=== PATIENT | male | born 1965 | race Caucasian/White ===

== ENCOUNTER 2019-12-17 09:51 | Inpatient (IN) ==
[2019-12-17] MEDS ORDERED: 0.9 % SODIUM CHLORIDE 1,000 ML IV ONE ×2 (10:20→13:45)
[2019-12-17] MEDS ORDERED: LORazepam 2 MG/ML VIAL IV ONE ×3 (10:22→15:33)
[2019-12-17] MEDS ORDERED: ONDANSETRON 4 MG/2 ML VIAL IV ONE (10:35)
--- NOTE | 2019-12-17 10:35 | Emergency Department Note ---
Seizure HPI General Chief Complaint: Seizure Stated Complaint: seizure Time Seen by Provider: 12/17/19 10:05 Source: patient Mode of arrival: ambulatory Limitations: no limitations History of Present Illness HPI Narrative: 54-year-old male patient brought to the emergency department via law enforcement after suffering a seizure in the retirement. Senior Care staff mention the seizure lasted for approximately 1 minute and 30 seconds. Afterwards, patient was postictal for several more minutes. Upon arrival patient is alert and orientated to his person and place. He is unsure what day of the week or month it is. Patient admits to a longstanding history of seizure disorder. He mentions being on some form of antiseizure medicine in the past but is unsure which one. Patient also admits to a longstanding history of excessive alcohol consumption. He mentions drinking approximately 15 "tall beers" nightly. He is unsure when his last alcohol intake was but thinks it was around the time he was incarcerated which was on 12/12. Patient admits to being homeless and is "living out of my car for the last several months". Patient has no considerable complaints and does mention feeling "pretty good". ROS: Denies systemic illness. Admits to sweats and chills. Denies headaches, tinnitus, or vision changes. Denies runny nose, sinus congestion, or cough. Admits to mild shortness of breath. Denies retrosternal chest pain or palpitations. Denies abdominal pain, nausea, vomiting, or diarrhea. Denies dysuria, hematuria, urinary frequency, or urinary urgency. Denies generalized or focal weakness. Related Data Home Medications Medication Instructions Recorded Confirmed No Known Home Meds 12/13/19 12/13/19 Allergies Allergy/AdvReac Type Severity Reaction Status Date / Time No Known Drug Allergies Allergy Verified 12/13/19 23:04 Review of Systems All systems ED: reviewed and negative except as stated. [facility] Medical/Surgical/Family History All Active Problems (Updated 12/17/19 @ 15:48 by Roddy Jara PA-C) Contusion, lips (Acute) Abrasion of lip, initial encounter (Acute) Medical clearance for incarceration (Acute) Altered mental status (Acute) Elevated LFTs (Acute) Seizures (Chronic) Alcoholism, chronic (Chronic) Medical History Alcoholism, chronic (Chronic) Seizures (Chronic) Social History Smoking Status: Never smoker Exam General Limitations: no limitations General appearance: other (Well-developed, well-nourished, somewhat anxious appearing 54-year-old male patient laying semirecumbent on the emergency room gurney in no acute respiratory distress.) Head Head: atraumatic and normocephalic Eye Eye: Present normal appearance, PERRL and EOMI; Absent scleral icterus and conjunctival injection ENT ENT: Present normal oropharynx and mucous membranes moist Neck Neck: Present trachea midline; Absent lymphadenopathy Chest Chest: Present symmetric chest wall rise Respiratory Respiratory: Present normal lung sounds bilaterally; Absent respiratory distress, wheezes, stridor, accessory muscle use and prolonged expiratory phase Cardiovascular Cardiovascular: Present regular rate and normal rhythm; Absent systolic murmur and diastolic murmur Adbominal Abdominal: Present soft; Absent distention, tenderness, guarding, rebound, rigidity, organomegaly and mass Extremities Extremities: Present normal inspection, full ROM and normal capillary refill; Absent tenderness Back Back: Absent CVA tenderness (R), CVA tenderness (L) and spinous process tenderness Neurological Neurological: Present alert, oriented X3, CN II-XII intact and reflexes normal; Absent motor sensory deficit Psychiatric Psychiatric: Present normal affect and anxious Skin Skin: Present warm, dry and normal color Course Course Course Narrative: Patient has known history of seizure disorder and had a CT scan of his head performed back in August that showed some white matter atrophy but no other findings. At this time patient is alert and orientated without focal neurologic findings. I do not think additional neuro imaging is warranted. We are going to order some screening laboratory studies to review. Patient was given 1000 mL normal saline as a bolus. Patient became somewhat nauseated and was also given Zofran 4 mg IVP. Review of the literature indicates that there are mixed results using Keppra for seizures related to alcohol withdrawal. With this in mind, patient was given Ativan 0.5 mg IVP. A review of his laboratory studies show the following: CBC WBC 6.9, RBC 4.29, hemoglobin 9.3, hematocrit 32.2, MCV 75.1, platelet count 110. CMP chloride 95, CO2 12, anion gap 29, glucose 179, total bilirubin 1.1, AST 80, ALT 47. Magnesium 2.0. After reviewing all the data I discussed these findings with the patient. He is no longer in the custody of law enforcement. However, there is questions about discharge and where he is going to get follow-up. He does have's developing anemia. There is also question of further alcohol consumption. Patient is currently homeless. ironworker was contacted for evaluation and guidance. Patient was transferred to a different examination room. Nursing staff tried to get the patient up. At that time he became very unsteady, wobbly, and tremulous. He continues to have equal health and nutrition specialist strength equal push pull with his feet. However, he is very unsteady and has a considerable resting tremor. Patient was given repeat 1000 mL normal saline. He was also given repeat Ativan 0.5 mg IVP. ironworker met with the patient extensively throughout his stay. At this time there was recommendation to have a CIWA scale performed. Patient scored high (17) on his CIWA making the diagnosis of acute alcohol withdrawal syndrome very likely. With this in mind I reached out to the hospitalist (Dr. Longo) for possible admission. At this time the hospitalist recommended the patient be started on IV infusion of normal saline 150 mL/hour. He also recommended repeat noncontrast head CT scan due to the patient's worsening condition. He did consent to admit the patient to the hospital for ongoing care. The IV infusion and CT scan were ordered as requested. At this time patient is going to be admitted as mentioned. All further treatment decisions, modalities, and ultimate patient disposition will be carried out by Dr. Longo. Vital Signs Vital signs: Vital Signs Temperature 97.7 F 12/17/19 09:51 Pulse Rate 92 H 12/17/19 09:51 Respiratory Rate 16 12/17/19 09:51 Blood Pressure 142/92 12/17/19 09:51 Pulse Oximetry (%) 95 12/17/19 09:51 Temperature 97.7 F 12/17/19 16:11 Pulse Rate 103 H 12/17/19 16:11 Respiratory Rate 16 12/17/19 16:11 Blood Pressure 163/87 12/17/19 16:11 Pulse Oximetry (%) 97 12/17/19 16:11 [facility] Lab Data Lab results reviewed: Yes I reviewed the patient's lab results. Result diagrams: 12/17/19 10:30 06/25/20 10:29 Labs: Lab Results 12/17/19 12/17/19 Range/Units 10:29 10:30 WBC 6.9 (4.50-11.00) K/mcL RBC 4.29 L (4.63-6.08) M/mcL Hgb 9.3 L (13.7-17.5) g/dL Hct 32.2 L (40.1-51.0) % MCV 75.1 L (80.0-100.0) fL MCH 21.7 L (26.0-34.0) pg MCHC 28.9 L (31.0-36.0) g/dL RDW 20.2 H (11.5-14.5) % Plt Count 110 L (140-440) K/mcL MPV 10.1 (7.4-10.4) fL Gran % 80.0 H (38.0-78.0) % Lymph % (Auto) 8.9 L (15.5-49.0) % Major % (Auto) 10.4 (1.0-12.0) % Eos % (Auto) 0.1 (0.0-7.0) % Baso % (Auto) 0.6 (0.0-2.0) % Gran # 5.55 (1.80-8.00) K/mcL Lymph # (Auto) 0.62 L (1.50-4.80) K/mcL Major # (Auto) 0.72 (0.10-0.90) K/mcL Eos # (Auto) 0.01 (0.00-0.70) K/mcL Baso # (Auto) 0.04 (0.00-0.30) K/mcL Sodium 136 (133-145) mmol/L Potassium 3.8 (3.3-5.1) mmol/L Chloride 95 L (96-108) mmol/L Carbon Dioxide 12 L (22-30) mmol/L Anion Gap 29.0 H (8-16) BUN 6 (6-20) mg/dl Creatinine 0.9 (0.7-1.2) mg/dl GFR Calculation 96 Glucose 179 H (70-105) mg/dL Calcium 9.1 (8.6-10.4) mg/dl Magnesium 2.0 (1.6-2.5) mg/dL Total Bilirubin 1.1 H (0.0-1.0) mg/dL AST 80 H (0-37) U/l ALT 47 H (0-40) U/l Alkaline Phosphatase 76 (39-117) U/L Total Protein 7.1 (5.9-8.4) gm/dL Albumin 4.3 (3.2-5.2) gm/dL Globulin 2.8 (2.2-3.7) gm/dL Albumin/Globulin Ratio 1.5 (1.0-2.3) Discharge Plan Patient/Caregiver Discharge Instructions Pt seen by DROP HAMMER MECHANIC/PA only: Yes Clinical Impression: Seizures, Alcoholism, chronic, Elevated LFTs Altered mental status Qualifiers: Altered mental status type: unspecified Qualified Code(s): R41.82 - Altered mental status, unspecified Patient Disposition: Xfer As Inpt ([facility]) Discharge Date/Time: 12/17/19 16:13
[2019-12-17 11:09] LABS: Basophils # (Auto) 0.04 K/mcL (0.00-0.30); Basophils % (Auto) 0.6 % (0.0-2.0); Eosinophils # (Auto) 0.01 K/mcL (0.00-0.70); Eosinophils % (Auto) 0.1 % (0.0-7.0); Hematocrit 32.2 % (40.1-51.0); Hemoglobin 9.3 g/dL (13.7-17.5); Lymphocytes # (Auto) 0.62 K/mcL (1.50-4.80); Lymphocytes % (Auto) 8.9 % (15.5-49.0); Mean Cell Volume 75.1 fL (80.0-100.0); Mean Corpuscular HGB Conc 28.9 g/dL (31.0-36.0); Mean Platelet Volume 10.1 fL (7.4-10.4); Monocytes # (Auto) 0.72 K/mcL (0.10-0.90); Monocytes % (Auto) 10.4 % (1.0-12.0); Platelet Count 110 K/mcL (140-440); RBC 4.29 M/mcL (4.63-6.08); Red Cell Distribution Width 20.2 % (11.5-14.5); WBC 6.9 K/mcL (4.50-11.00)
[2019-12-17 11:31] LABS: ALT/SGPT 47 U/l (0-40); AST/SGOT 80 U/l (0-37); Albumin 4.3 gm/dL (3.2-5.2); Albumin/Globulin Ratio 1.5 (1.0-2.3); Alkaline Phosphatase 76 U/L (39-117); Bilirubin,Total 1.1 mg/dL (0.0-1.0); Blood Urea Nitrogen 6 mg/dl (6-20); Calcium 9.1 mg/dl (8.6-10.4); Carbon Dioxide 12 mmol/L (22-30); Globulin 2.8 gm/dL (2.2-3.7); Glomerular Filtration Rate 96; Glucose 179 mg/dL (70-105)
[2019-12-17 11:33] LABS: Chloride 95 mmol/L (96-108)
[2019-12-17] MEDS ORDERED: DEXTROSE 50% 50 ML VIAL IV PRN (15:37)
[2019-12-17] MEDS ORDERED: ALBUTEROL SULFATE 2.5 MG/3 ML NEBULIZER NEB PRN (15:37)
[2019-12-17] MEDS ORDERED: ONDANSETRON 4 MG/2 ML VIAL IV PRN (15:37)
[2019-12-17] MEDS ORDERED: ACETAMINOPHEN 325 MG TABLET PO PRN (15:37)
[2019-12-17] MEDS ORDERED: DEXTROSE 31 GM ORAL.SUSP PO PRN (15:37)
[2019-12-17] MEDS ORDERED: traZODone HCL 50 MG TABLET PO PRN (15:37)
[2019-12-17] MEDS ORDERED: 0.9 % SODIUM CHLORIDE 1,000 ML IV SCH (15:45)
--- NOTE | 2019-12-17 16:00 | Cat Scan Report ---
CLINICAL INFORMATION: Confusion possible seizures COMPARISON: 02/11/2020 TECHNIQUE: 2.5 mm helical slices were obtained in the skull base to vertex. Following reconstruction, axial reformatted images were reviewed at bone and parenchymal windows. The exam was performed using radiation dose optimization techniques including, but not limited to, automated exposure control, adjustment of the mA and/or kV according to patient size and use of iterative reconstruction technique. FINDINGS: The ventricles, sulci, fissures, and cisterns are symmetrically enlarged compatible with mild atrophy - more than expected for age.. No extra-axial fluid collections are identified. There is a 3.4 cm arachnoid cyst in the left posterior fossa minimally compressing the left lateral cerebellar hemisphere. The cerebrum, brainstem and cerebellum are unremarkable. There is no evidence of hemorrhage, mass effect, or edema. Bone windows show no osseous abnormality. IMPRESSION: Mild atrophy - more the expected for age. 3.4 cm arachnoid cyst in the left posterior fossa Interpreted and Authenticated by: Yobani Moreno 12/17/19
[2019-12-17] MEDS: levETIRAcetam 500 MG in 0.9 % SODIUM CHLORIDE 100 ML IV SCH (16:57)
[2019-12-17] MEDS: INSULIN LISPRO 1 UNIT/0.01 ML UNIT SQ SCH ×2 (17:03→20:31)
--- NOTE | 2019-12-17 18:06 | Internal Med History&Physical ---
HPI History of Present Illness Patient information: Note initiated : 12/17/19 at 6:00 pm Service Date, if different from initiated Date: [] Patient: Rios Navarro 54 y/o M admitted on 12/17/19 for seizure. Chief Complaint: [] History of present illness: Mr. Navarro is a 54 year old M 54-year-old gentleman with a history of severe alcohol dependence and alcohol withdrawal seizures and delirium was [facility] the ED [facility] following 2 epi sodes of seizures. Patient has been drinking about 15 tall alcohol bottles and beers for the last few months since May and end up in penitentiary for trespassing he has been incarcerated for the last 4 days. He has a bail hearing and noticed 2 episodes of seizure. Patient being homeless and living out of his car for last few months. Patient denied any other health issues other than unsteady gait for the last few months and numbness of the bilateral lower extremities. Constitutional Constitutional: Present weakness; Absent daytime sleepiness, fever(s), increased appetite and night sweats EENT Eyes: Absent discharge, floaters, loss of peripheral vision and photophobia Nose, mouth and throat: Present as per HPI; Absent change in voice, dizziness and epistaxis Cardiovascular Cardiovascular: Absent chest pain at rest, diaphoresis, edema and leg edema Respiratory Respiratory: Present snoring; Absent hemoptysis, chest congestion and pain with cough Gastrointestinal Gastrointestinal: Absent change in bowel habits, constipation, dyspepsia and excessive flatus Musculoskeletal Musculoskeletal: Present abnormal gait, back pain, joint swelling, muscle cramps, myalgias, numbness and tingling Neurological Neurological: Present abnormal gait, abnormal movements, disequilibrium, numbness, paresthesias, sensory deficit, tingling and tremor(s); Absent abnormal hearing, confusion, convulsions, focal weakness, headache(s), loss of vision, memory loss, radicular pain, syncope and vertigo Psychiatric Psychiatric: Present abnormal sleep pattern, anxiety and irritability; Absent auditory hallucinations, change in appetite, change in libido, cravings, depression, hallucinations, homicidal ideation, memory loss, paranoia and suicidal ideation Endocrine Endocrine: Present fatigue; Absent cold intolerance, flushing, increase in ring/shoe/hat size, palpitations and polyphagia Hematologic/Lymphatic Hematologic/Lymphatic: Absent easy bleeding, easy bruising and lymphadenopathy PFSH [facility] Medical History Alcoholism, chronic (Chronic) Seizures (Chronic) Social History smoking status: Never smoker MEDS/ALLERGIES Home Medications and Allergies Home Medications Medication Instructions Recorded Confirmed Type No Known Home Meds 12/13/19 12/17/19 History Allergies Allergy/AdvReac Type Severity Reaction Status Date / Time No Known Drug Allergies Allergy Verified 12/13/19 23:04 EXAM Constitutional Vitals: Temp Pulse Resp BP Pulse Ox 98.9 F 89 18 132/82 96 12/17/19 17:33 12/17/19 17:33 12/17/19 17:33 12/17/19 17:33 12/17/19 17:33 General appearance: disheveled and moderate distress Head Head exam: Present atraumatic and normal inspection Eye Eye exam: Present normal appearance; Absent periorbital swelling, periorbital tenderness and scleral icterus Pupils: Present normal accommodation ENT ENT exam: Present mucous membranes dry Neck Neck exam: Present full ROM and normal inspection; Absent lymphadenopathy and tenderness Respiratory Respiratory exam: Present normal respiratory exam; Absent accessory muscle use, respiratory distress, rhonchi and wheezes Cardiovascular Cardiovascular exam: Present tachycardia; Absent JVD, rubs, +S3 and +S4 GI/Abdominal GI/Abdominal exam: Present normal bowel sounds and distended; Absent pulsatile mass and tenderness Extremities Exam Extremities exam: Present normal capillary refill; Absent calf tenderness, pedal edema and Layla's sign Back Exam Back exam: Absent CVA tenderness (L), muscle spasm and rash noted Neurological Exam Neurological exam: Present abnormal gait Additional comments: Unsteady gait, wide gait, motor strength bilaterally equal, crude sensation diminished b/l lower extremity Psychiatric Psychiatric exam: Present anxious; Absent agitated Skin Skin exam: Absent abrasion, cyanosis and erythema DATA Data Completed and Pending Labs on day of discharge: Labs from last 24 hours 12/17/19 12/17/19 12/17/19 10:30 10:29 10:22 WBC 6.9 RBC 4.29 L Hgb 9.3 L Hct 32.2 L MCV 75.1 L MCH 21.7 L MCHC 28.9 L RDW 20.2 H Plt Count 110 L MPV 10.1 Gran % 80.0 H Lymph % (Auto) 8.9 L [place] % (Auto) 10.4 Eos % (Auto) 0.1 Baso % (Auto) 0.6 Gran # 5.55 Lymph # (Auto) 0.62 L [place] # (Auto) 0.72 Eos # (Auto) 0.01 Baso # (Auto) 0.04 Sodium 136 Potassium 3.8 Chloride 95 L Carbon Dioxide 12 L Anion Gap 29.0 H BUN 6 Creatinine 0.9 GFR Calculation 96 Glucose 179 H Calcium 9.1 Magnesium 2.0 Total Bilirubin 1.1 H AST 80 H ALT 47 H Alkaline Phosphatase 76 Total Protein 7.1 Albumin 4.3 Globulin 2.8 Albumin/Globulin Ratio 1.5 TSH 5.89 H A/P Narrative A/P Narrative: Narrative: Probable alcohol withdrawal seizure and delirium tremens History of heavy alcohol intake and end up in the penitentiary for [employer] Patient had 2 episodes of seizures in penitentiary Patient was presented in the ED by the police and given 2 dose of lorazepam Started him on Keppra 500 twice daily We will start him on CIWA protocol with scheduled lorazepam and as needed 0.5 mg every 2 hour Severe metabolic acidosis Probably starvation acidosis Start him on IV fluid resuscitation We will start him on thiamine Severe alcohol dependence Patient has plans to stay away from alcohol Social service consult Unsteady gait Probable peripheral neuropathy Ordered B12 level Ordered TSH level DVT prophylaxis-subcu Lovenox CODE STATUS-DNR CPT code 76372 Time Spent With Patient Time: Total time spent is greater than 50% in coordination of care (as documented) at patient's floor/unit and/or counseling patient: QUALITY VTE Deep Vein Thrombosis/Pulmonary Embolism Present on Admission: No
[2019-12-17] MEDS: DEXTROSE 5%-NS 1,000 ML IV SCH (19:01)
[2019-12-17] MEDS: LORazepam 2 MG/ML VIAL IV SCH (19:31)
[2019-12-17] MEDS ORDERED: SODIUM CHLORIDE 0.9% IV ONE (20:00)
[2019-12-17] MEDS ORDERED: THIAMINE IV ONE (20:00)
[2019-12-17] MEDS: DOCUSATE SODIUM 100 MG CAPSULE PO SCH (20:14)
[2019-12-17] MEDS: FAMOTIDINE 20 MG TABLET PO SCH (20:14)
[2019-12-17] MEDS: 0.9 % SODIUM CHLORIDE 10 ML SYRINGE IV SCH (20:25)
[2019-12-17] MEDS ORDERED: SENNOSIDES 1 TABLET PO SCH (21:00)
[2019-12-17] MEDS ORDERED: HALOPERIDOL LACTATE 5 MG/ML VIAL IV PRN (22:34)
[2019-12-17] MEDS: LORazepam 2 MG/ML VIAL IV PRN (22:55)
[2019-12-17 23:26] LABS: Basophils # (Auto) 0.05 K/mcL (0.00-0.30); Basophils % (Auto) 0.8 % (0.0-2.0); Eosinophils # (Auto) 0.03 K/mcL (0.00-0.70); Eosinophils % (Auto) 0.5 % (0.0-7.0); Granulocytes % (Auto) 76.7 % (38.0-78.0); Hematocrit 28.3 % (40.1-51.0); Hemoglobin 8.3 g/dL (13.7-17.5); Lymphocytes # (Auto) 0.69 K/mcL (1.50-4.80); Lymphocytes % (Auto) 11.4 % (15.5-49.0); Mean Cell Volume 74.5 fL (80.0-100.0); Mean Corpuscular HGB Conc 29.3 g/dL (31.0-36.0); Monocytes # (Auto) 0.64 K/mcL (0.10-0.90); Monocytes % (Auto) 10.6 % (1.0-12.0); Platelet Count 115 K/mcL (140-440); Red Cell Distribution Width 20.7 % (11.5-14.5)
[2019-12-18] MEDS: LORazepam 2 MG/ML VIAL IV SCH ×5 (00:07→23:41)
[2019-12-18] MEDS ORDERED: HALOPERIDOL LACTATE 5 MG/ML VIAL ONE (01:52)
[2019-12-18] MEDS: LORazepam 2 MG/ML VIAL IV PRN ×3 (03:30→19:28)
[2019-12-18] MEDS: 0.9 % SODIUM CHLORIDE 10 ML SYRINGE IV SCH ×3 (04:52→20:51)
[2019-12-18] MEDS: DEXTROSE 5%-NS 1,000 ML IV SCH ×2 (05:21→14:30)
[2019-12-18 07:54] LABS: Basophils # (Auto) 0.03 K/mcL (0.00-0.30); Basophils % (Auto) 0.6 % (0.0-2.0); Eosinophils # (Auto) 0.04 K/mcL (0.00-0.70); Eosinophils % (Auto) 0.9 % (0.0-7.0); Granulocytes % (Auto) 69.2 % (38.0-78.0); Hematocrit 26.6 % (40.1-51.0); Hemoglobin 7.7 g/dL (13.7-17.5); Lymphocytes # (Auto) 0.86 K/mcL (1.50-4.80); Lymphocytes % (Auto) 18.5 % (15.5-49.0); Mean Cell Volume 75.6 fL (80.0-100.0); Mean Corpuscular HGB Conc 28.9 g/dL (31.0-36.0); Mean Platelet Volume 10.5 fL (7.4-10.4); Monocytes % (Auto) 10.8 % (1.0-12.0); Platelet Count 102 K/mcL (140-440); RBC 3.52 M/mcL (4.63-6.08); Red Cell Distribution Width 20.7 % (11.5-14.5); WBC 4.7 K/mcL (4.50-11.00)
[2019-12-18] MEDS: levETIRAcetam 500 MG in 0.9 % SODIUM CHLORIDE 100 ML IV SCH ×2 (08:03→20:17)
[2019-12-18] MEDS: INSULIN LISPRO 1 UNIT/0.01 ML UNIT SQ SCH (08:04)
[2019-12-18 08:15] LABS: ALT/SGPT 36 U/l (0-40); AST/SGOT 65 U/l (0-37); Albumin 3.4 gm/dL (3.2-5.2); Albumin/Globulin Ratio 1.4 (1.0-2.3); Alkaline Phosphatase 60 U/L (39-117); Bilirubin,Total 0.7 mg/dL (0.0-1.0); Blood Urea Nitrogen 6 mg/dl (6-20); Calcium 8.1 mg/dl (8.6-10.4); Globulin 2.4 gm/dL (2.2-3.7); Glomerular Filtration Rate 106; Glucose 126 mg/dL (70-105)
[2019-12-18 08:17] LABS: Carbon Dioxide 24 mmol/L (22-30); Chloride 105 mmol/L (96-108)
[2019-12-18] MEDS ORDERED: POTASSIUM PHOSPHATE 40 MEQ in DEXTROSE 5% IN WATER 500 ML IV ONE (08:48)
[2019-12-18] MEDS ORDERED: ENOXAPARIN 30 MG/0.3 ML SYRINGE SQ SCH (09:00)
[2019-12-18] MEDS: DOCUSATE SODIUM 100 MG CAPSULE PO SCH ×2 (09:48→20:17)
[2019-12-18] MEDS: FAMOTIDINE 20 MG TABLET PO SCH ×2 (09:48→20:17)
[2019-12-18] MEDS ORDERED: POTASSIUM CHLORIDE 40 MEQ in DEXTROSE 5% IN WATER 500 ML IV ONE (10:00)
[2019-12-18] MEDS ORDERED: 0.9 % SODIUM CHLORIDE 250 ML IV SCH ×2 (10:15→15:23)
[2019-12-18] MEDS ORDERED: THIAMINE 100 MG in 0.9 % SODIUM CHLORIDE 50 ML IV SCH (12:00)
[2019-12-18] MEDS ORDERED: PANTOPRAZOLE 80 MG in 0.9 % SODIUM CHLORIDE 100 ML IV SCH (13:30)
[2019-12-18] MEDS ORDERED: OCTREOTIDE ACETATE 500 MCG in 0.9 % SODIUM CHLORIDE 499.5 ML IV SCH (13:30)
--- NOTE | 2019-12-18 13:33 | Internal Med Progress Note ---
SUBJECTIVE Subjective Patient information: Note initiated : 12/18/19 at 1:31 pm Service Date, if different from initiated Date: [] Patient: Rios Navarro 54 y/o M admitted on 12/17/19 for seizure. Chief Complaint: [] Interval history: Narrative: 54-year-old gentleman with a history of severe alcohol dependence and alcohol withdrawal seizures and delirium was [facility] following 2 episodes of seizures. Patient has been drinking about 15 tall alcohol bottles and beers for the last few months since May and end up in [facility] for trespassing he has been incarcerated for the last 4 days. He has a bail hearing and noticed 2 episodes of seizure. Patient being homeless and living out of his car for last few months. Patient denied any other health issues other than unsteady gait for the last few months and numbness of the bilateral lower extremities. 11/16 Overnight patient had dark emesis last night and this morning patient had episodes of melena Possibility of upper GI bleed probable alcoholic gastritis He he is hemodynamically stable and his symptoms are better Ordered 2 units of blood transfusion Start him on Protonix drip Octreotide infusion Discussed with Dr. Atkinson and planning to evaluate him and consider EGD accordingly Review of system Constitutional-no fever no chills he is feeling better Abdominal-not complaining of any pain no cramping no diarrhea melena and dark emesis present Respiratory-no respiratory distress no hypoxia no accessory muscle use Cardiac-no chest pain no palpitations Neuro-no focal neuro deficit continued having tremor and weakness Psychiatry-appears to be anxious, Constitutional Vitals: Vital Signs Temp Pulse Resp BP Pulse Ox 99.4 F H 72 18 117/74 95 12/18/19 08:00 12/18/19 08:00 12/18/19 08:00 12/18/19 08:00 12/18/19 08:00 Period Temp Pulse Resp BP Sys/Mcgill Pulse Ox Last 24 Hr 97.7 F-99.4 F 60-103 16-22 117-163/66-87 93-97 Intake and Output 12/17/19 12/18/19 12/18/19 21:59 05:59 13:59 Intake Total 2825 1500 105 Output Total 1 901 Balance 2824 599 105 Weight 203 lb 9.6 oz 203 lb 9.6 oz Patient Weight 12/19/19 05:59 Weight 203 lb 9.6 oz Intake & Output: Intake & Output 12/17/19 12/18/19 12/18/19 21:59 05:59 13:59 Intake Total 2825 1500 105 Output Total 1 901 Balance 2824 599 105 Weight 203 lb 9.6 oz 203 lb 9.6 oz Intake: IV 1665 1000 105 Sodium Chloride 0.9% 1,000 ml @ 1305 150 mls/hr IV .[id number] [facility] Rx#: [id number] Dextrose 5%-Ns IV Solution 1, 1000 000 ml @ 100 mls/hr IV .Q10H [facility] Rx#:[id number] Vitamin B1 500 mg In Sodium 255 Chloride 0.9% 250 ml @ 255 mls/ hr IV ONCE ONE Rx#:[id number] Keppra 500 mg In Sodium 105 105 Chloride 0.9% 100 ml @ 200 mls/ hr IV Q12H [facility] Rx#:[id number] Oral 1160 500 Output: Void Amount 200 # of times incontinent of urine 1 1 Emesis 700 Other: Meal Dinner Percent of Meal Consumed 75% Stool Size Moderate Stool Color Brown Stool Consistency Normal for Patient Formed # Voids 1 1 # Unmeasured Emesis 1 1 # Bowel Movements 1 General appearance: cooperative, disheveled and mild distress Head Head exam: Present atraumatic, normal inspection and normocephalic ENT ENT exam: Present normal exam, normal external ear exam and normal oropharynx Neck Neck exam: Present normal inspection; Absent lymphadenopathy and tenderness Respiratory Respiratory exam: Present decreased breath sounds; Absent accessory muscle use, respiratory distress and wheezes Cardiovascular Cardiovascular exam: Absent bradycardia, diastolic murmur, JVD and +S4 GI/Abdominal GI/Abdominal exam: Present soft and distended; Absent guarding and tenderness Extremities Exam Extremities exam: Present normal inspection; Absent calf tenderness and tenderness Neurological Exam Neurological exam: Present abnormal gait, alert and oriented X3; Absent motor sensory deficit Psychiatric Psychiatric exam: Present anxious; Absent homicidal ideation and suicidal ideation OBJ DATA Labs CBC & Chem 7: 12/18/19 05:50 12/18/19 05:50 Labs: Abnormal Lab Results 12/18/19 12/18/19 12/17/19 05:50 05:50 22:40 RBC 3.52 L 3.80 L Hgb 7.7 L 8.3 L Hct 26.6 L 28.3 L MCV 75.6 L 74.5 L MCH 21.9 L 21.8 L MCHC 28.9 L 29.3 L RDW 20.7 H 20.7 H Plt Count 102 L 115 L MPV 10.5 H Gran % Lymph % (Auto) 11.4 L Lymph # (Auto) 0.86 L 0.69 L Potassium 3.1 L Chloride Carbon Dioxide Anion Gap Glucose 126 H Calcium 8.1 L Total Bilirubin AST 65 H ALT Total Protein 5.8 L TSH 12/17/19 12/17/19 12/17/19 10:30 10:29 10:22 RBC 4.29 L Hgb 9.3 L Hct 32.2 L MCV 75.1 L MCH 21.7 L MCHC 28.9 L RDW 20.2 H Plt Count 110 L MPV Gran % 80.0 H Lymph % (Auto) 8.9 L Lymph # (Auto) 0.62 L Potassium Chloride 95 L Carbon Dioxide 12 L Anion Gap 29.0 H Glucose 179 H Calcium Total Bilirubin 1.1 H AST 80 H ALT 47 H Total Protein TSH 5.89 H Meds: Medications Acetaminophen (Tylenol) 650 mg PO Q6HP PRN; Protocol PRN Reason: Per Pain Protocol/Fever > 101 Albuterol Sulfate (Ventolin) 2.5 mg NEB Q2HP PRN PRN Reason: Shortness Of Breath Docusate Sodium (Colace) 100 mg PO BID [facility] Last Admin: 12/18/19 09:48 Dose: 100 mg Documented by: Famotidine (Pepcid) 20 mg PO BID [facility] Last Admin: 12/18/19 09:48 Dose: 20 mg Documented by: Haloperidol Lactate (Haldol) 2 mg IV Q4HP PRN PRN Reason: Agitation Last Admin: 12/18/19 01:53 Dose: 2 mg Documented by: Levetiracetam 500 mg/ Sodium (Chloride) 105 mls @ 200 mls/hr IV Q12H [facility] Last Infusion: 12/18/19 08:45 Dose: Infused Documented by: Dextrose/Sodium Chloride (Dextrose 5%-Ns Iv Solution) 1,000 mls @ 100 mls/hr IV .Q10H [facility] Last Admin: 12/18/19 05:21 Dose: 100 mls/hr Documented by: Thiamine HCl 100 mg/ Sodium (Chloride) 51 mls @ 50 mls/hr IV DAILY [facility] Stop: 12/22/19 10:02 Last Admin: 12/18/19 12:16 Dose: 50 mls/hr Documented by: Potassium Chloride 40 meq/ (Dextrose) 520 mls @ 130 mls/hr IV ONCE ONE Stop: 12/18/19 13:59 Last Admin: 12/18/19 09:48 Dose: 130 mls/hr Documented by: Sodium Chloride (Sodium Chloride 0.9%) 250 mls @ 20 mls/hr IV .[id number] [facility] Stop: 12/18/19 22:44 Last Admin: 12/18/19 12:16 Dose: 20 mls/hr Documented by: Pantoprazole Sodium 80 mg/ (Sodium Chloride) 100 mls @ 10 mls/hr IV Q10H [facility] Octreotide Acetate 500 mcg/ (Sodium Chloride) 500 mls @ 50 mls/hr IV Q10H [facility]; Protocol Lorazepam (Ativan) 1 mg IV Q6H [facility] Last Admin: 12/18/19 12:15 Dose: 1 mg Documented by: Lorazepam (Ativan) 0.5 mg IV Q4HP PRN PRN Reason: ANXIETY/SEDATION Last Admin: 12/18/19 09:48 Dose: 0.5 mg Documented by: Ondansetron HCl (Zofran) 4 mg IV Q6HP PRN PRN Reason: Nausea And Vomiting Last Admin: 12/17/19 20:31 Dose: 4 mg Documented by: Senna (Senokot) 2 tab PO HS [facility] Last Admin: 12/17/19 20:14 Dose: 2 tab Documented by: Sodium Chloride (Saline Flush) 10 ml IV Q8 [facility] Last Admin: 12/18/19 04:52 Dose: Not Given Documented by: Trazodone HCl (Desyrel) 50 mg PO HSP PRN PRN Reason: Insomnia A/P Narrative A/P Narrative: Narrative: Probable upper GI bleed Possible to alcoholic gastritis or Rosana-Quispe tear Patient denied previous history of esophageal varices or any endoscopy in the past His history of long-term alcoholism put him at risk for portal hypertension Started him on Protonix drip, octreotide drip Monitor hemoglobin every [address] Atkinson and he will evaluate the patient and consider EGD accordingly probable alcohol withdrawal seizure and delirium tremens History of heavy alcohol intake and end [facility] in the [facility] for [facility]blografat Patient had 2 episodes of seizures in [facility] Patient was presented in the ED by the police and given 2 dose of lorazepam Started him on Keppra 500 twice daily We will start him on CIWA protocol with scheduled lorazepam and as needed 0.5 mg every 2 hour Haldol 2 mg IV every 4 hours as needed for psychotic symptoms and agitation ? evere metabolic acidosis Probably starvation acidosis Start him on IV fluid resuscitation We will start him on thiamine Severe alcohol dependence Patient has plans to stay away from alcohol Social service consult Unsteady gait Probable peripheral neuropathy Ordered B12 level Ordered TSH level DVT prophylaxis-subcu Lovenox CODE STATUS-DNR ? ? Acute on chronic systolic heart failure Chronic ischemic cardiomyopathy Ejection fraction 25 to 30% earlier this year RV dilation Moderate to severe tricuspid regurgitation Plan Continue IV Lasix and monitor blood pressure Continue digoxin and monitor potassium Monitor electrolytes and replace potassium Follow-up with cardiology Status post ICD Acute hypoxic respiratory failure Due to congestive heart failure Monitor oxygenation CPAP continue Probably need home oxygen COPD Monitor oxygenation No evidence of exacerbation Atrial fibrillation-rate controlled Patient is on Toprol Started him on digoxin Hold the medication for systolic blood pressure less than 100 CAD status post CABG Status post AICD Follow-up with cardiology Poor prognosis with a continued cardiomyopathy Patient wants to be DNR Myeloproliferative disorder CKD stage IV Monitor creatinine Monitor urine output Chronic anemia Monitor hemoglobin Ordered vitamin B12 level Myeloproliferative disorder with thrombocytopenia and anemia Follow-up with oncology Time Spent With Patient Time: Total time spent is greater than 50% in coordination of care (as documented) at patient's floor/unit and/or counseling patient: QUALITY VTE Deep Vein Thrombosis/Pulmonary Embolism Present on Admission: No
[2019-12-18 14:03] LABS: Basophils # (Auto) 0.03 K/mcL (0.00-0.30); Basophils % (Auto) 0.6 % (0.0-2.0); Eosinophils # (Auto) 0.06 K/mcL (0.00-0.70); Eosinophils % (Auto) 1.1 % (0.0-7.0); Granulocytes % (Auto) 74.9 % (38.0-78.0); Hematocrit 28.5 % (40.1-51.0); Hemoglobin 8.2 g/dL (13.7-17.5); Lymphocytes # (Auto) 0.71 K/mcL (1.50-4.80); Lymphocytes % (Auto) 13.1 % (15.5-49.0); Mean Corpuscular HGB Conc 28.8 g/dL (31.0-36.0); Monocytes # (Auto) 0.56 K/mcL (0.10-0.90); Monocytes % (Auto) 10.3 % (1.0-12.0); Platelet Count 108 K/mcL (140-440); RBC 3.75 M/mcL (4.63-6.08); Red Cell Distribution Width 21.1 % (11.5-14.5); WBC 5.4 K/mcL (4.50-11.00)
[2019-12-18] MEDS ORDERED: traZODone HCL 50 MG TABLET PO PRN (15:23)
[2019-12-18] MEDS ORDERED: DEXTROSE 5%-NS 1,000 ML IV SCH (15:23)
[2019-12-18] MEDS ORDERED: ALBUTEROL SULFATE 2.5 MG/3 ML NEBULIZER NEB PRN (15:23)
[2019-12-18] MEDS ORDERED: ONDANSETRON 4 MG/2 ML VIAL IV PRN (15:23)
[2019-12-18] MEDS ORDERED: HALOPERIDOL LACTATE 5 MG/ML VIAL IV PRN (15:23)
--- NOTE | 2019-12-18 16:20 | General Surgery Consult Note ---
HPI Data of Consult Primary Care Provider: PCP No Consult Narrative Patient Information: Note initiated : 12/18/19 at 4:06 pm Service Date, if different from initiated Date: [] Patient: Rios Navarro 54 y/o M admitted on 12/17/19 for seizure. Chief Complaint: [] Chief complaint: upper GI bleeding and hematemesis Reason for consult: upper GI bleeding with need for upper endoscopy cc:: CC: Elinor Longo MD 54-year-old male with greater than 25 year history of severe alcoholism. He had a 4 to have year sober interval but has been drinking steadily for the past 3-4 years. He has had multiple episodes of half-way incarceration related to his alcoholism. He states that each time he's put in half-way he developed delirium tremens. He admits to drinking 15-20 16 ounce beers per day. He states that he drinks to kill his emotional sorrow.he was recently placed in half-way and developed seizure activity at the half-way and was transferred to the hospital for evaluation. Since hospitalization he has had emesis of gross coffee-ground material and has had black stools. His hemoglobin has decreased to 7.7. He states that he is not tremulous as he was in believes that he is on the recovery side of his alcohol withdrawal. Patient is seen in consultation for upper endoscopy. He is presently being transfused and he is being treated with PPI. He has chronic hiccups which were bothersome. Constitutional Constitutional: Present anorexia, frequent falls, headache(s), malaise, weakness and weight loss Respiratory Respiratory: Present dyspnea and other (dyspnea with short distance ambulation); Absent cough and wheezing Gastrointestinal Gastrointestinal: Present as per HPI Musculoskeletal Musculoskeletal: Present abnormal gait, arthralgias, muscle cramps, myalgias and radiating pain into limb (pain in both calves) Neurological Neurological: Present abnormal movements, behavioral changes, confusion, convulsions, frequent falls, headache(s), lack of coordination, numbness (numbness of plantar surface of both feet), restless legs, sensory deficit (confined primarily to feet and legs) and tremor(s) Psychiatric Psychiatric: Present abnormal sleep pattern, anxiety, behavioral changes, depression, hopelessness, memory loss and mood swings Hematologic/Lymphatic Hematologic/Lymphatic: Absent easy bleeding, easy bruising and lymphadenopathy Allergic/Immunologic Allergic/Immunologic: Absent tongue swelling, throat swelling, uticaria and wheezing [facility] Medical History Alcoholism, chronic (Chronic) Seizures (Chronic) Social History smoking status: Never smoker MEDS/ALLERGIES Home Medications and Allergies Home Medications Medication Instructions Recorded Confirmed Type No Known Home Meds 12/13/19 12/17/19 History Allergies Allergy/AdvReac Type Severity Reaction Status Date / Time No Known Drug Allergies Allergy Verified 12/13/19 23:04 Physical Examination Vital Signs Vital signs: Temp Pulse Resp BP Pulse Ox 99.5 F H 103 H 20 131/81 97 12/18/19 13:00 12/18/19 13:00 12/18/19 13:00 12/18/19 13:00 12/18/19 13:00 General physical appearance General physical exam: well developed, well nourished, moderate distress and chronically ill Eyes Eye exam: PERRL and normal ocular movement ENT ENT exam: normal nares and normal mucosa; negative no hearing loss Head Head exam IM: Present atraumatic, normal inspection and normocephalic Neck Neck exam: no masses, no bruits and trachea midline; negative no lymphadenopathy Cardiovascular Cardiovascular exam IM: Present normal rate and rhythm, RRR, +S1, +S2 and tachycardia; Absent JVD Respiratory Respiratory exam: normal expansion, normal respiratory effort, clear to percussion and clear to auscultation Abdomen Abdomen: Present non tender, tender (mild epigastric tenderness) and bowel sounds Integumentary Integumentary: Present no rash, no growths, no abnormal pigmentation and other Neurologic Neurologic: Present other (peripheral neuropathy with sensory and motor changes of lower extremities) Musculoskeletal Musculoskeletal: Present other (gait and posture not checked because of frequent falls) Psychiatric Psychiatric: Present oriented to person and oriented to place Results Labs Result diagrams: 12/18/19 12:12 12/18/19 05:50 Labs: Abnormal lab results 12/17/19 12/17/19 12/18/19 Range/Units 10:22 22:40 05:50 RBC 3.80 L (4.63-6.08) M/mcL Hgb 8.3 L (13.7-17.5) g/dL Hct 28.3 L (40.1-51.0) % MCV 74.5 L (80.0-100.0) fL MCH 21.8 L (26.0-34.0) pg MCHC 29.3 L (31.0-36.0) g/dL RDW 20.7 H (11.5-14.5) % Plt Count 115 L (140-440) K/mcL MPV (7.4-10.4) fL Lymph % (Auto) 11.4 L (15.5-49.0) % Lymph # (Auto) 0.69 L (1.50-4.80) K/mcL Potassium 3.1 L (3.3-5.1) mmol/L Glucose 126 H (70-105) mg/dL Calcium 8.1 L (8.6-10.4) mg/dl AST 65 H (0-37) U/l Total Protein 5.8 L (5.9-8.4) gm/dL TSH 5.89 H (0.27-5.01) uIU/ml 12/18/19 12/18/19 Range/Units 05:50 12:12 RBC 3.52 L 3.75 L (4.63-6.08) M/mcL Hgb 7.7 L 8.2 L (13.7-17.5) g/dL Hct 26.6 L 28.5 L (40.1-51.0) % MCV 75.6 L 76.0 L (80.0-100.0) fL MCH 21.9 L 21.9 L (26.0-34.0) pg MCHC 28.9 L 28.8 L (31.0-36.0) g/dL RDW 20.7 H 21.1 H (11.5-14.5) % Plt Count 102 L 108 L (140-440) K/mcL MPV 10.5 H (7.4-10.4) fL Lymph % (Auto) 13.1 L (15.5-49.0) % Lymph # (Auto) 0.86 L 0.71 L (1.50-4.80) K/mcL Potassium (3.3-5.1) mmol/L Glucose (70-105) mg/dL Calcium (8.6-10.4) mg/dl AST (0-37) U/l Total Protein (5.9-8.4) gm/dL TSH (0.27-5.01) uIU/ml Diabetes panel 12/18/19 Range/Units 05:50 Sodium 140 (133-145) mmol/L Potassium 3.1 L (3.3-5.1) mmol/L Chloride 105 (96-108) mmol/L Carbon Dioxide 24 (22-30) mmol/L BUN 6 (6-20) mg/dl Creatinine 0.7 (0.7-1.2) mg/dl Glucose 126 H (70-105) mg/dL Calcium 8.1 L (8.6-10.4) mg/dl AST 65 H (0-37) U/l ALT 36 (0-40) U/l Alkaline Phosphatase 60 (39-117) U/L Total Protein 5.8 L (5.9-8.4) gm/dL Albumin 3.4 (3.2-5.2) gm/dL Thyroid panel 12/17/19 Range/Units 10:22 TSH 5.89 H (0.27-5.01) uIU/ml Calcium panel 12/18/19 Range/Units 05:50 Calcium 8.1 L (8.6-10.4) mg/dl Albumin 3.4 (3.2-5.2) gm/dL Pituitary panel 12/17/19 12/18/19 Range/Units 10:22 05:50 Sodium 140 (133-145) mmol/L Potassium 3.1 L (3.3-5.1) mmol/L Chloride 105 (96-108) mmol/L Carbon Dioxide 24 (22-30) mmol/L BUN 6 (6-20) mg/dl Creatinine 0.7 (0.7-1.2) mg/dl Glucose 126 H (70-105) mg/dL Calcium 8.1 L (8.6-10.4) mg/dl TSH 5.89 H (0.27-5.01) uIU/ml Adrenal panel 12/18/19 Range/Units 05:50 Sodium 140 (133-145) mmol/L Potassium 3.1 L (3.3-5.1) mmol/L Chloride 105 (96-108) mmol/L Carbon Dioxide 24 (22-30) mmol/L BUN 6 (6-20) mg/dl Creatinine 0.7 (0.7-1.2) mg/dl Glucose 126 H (70-105) mg/dL Calcium 8.1 L (8.6-10.4) mg/dl Total Bilirubin 0.7 (0.0-1.0) mg/dL AST 65 H (0-37) U/l ALT 36 (0-40) U/l Alkaline Phosphatase 60 (39-117) U/L Total Protein 5.8 L (5.9-8.4) gm/dL Albumin 3.4 (3.2-5.2) gm/dL All other labs normal. A/P Assessment and plan (1) Upper gastrointestinal hemorrhage due to gastritis: Assessment and plan: patient should be transfused above 9. Indication have another day of stabilization of his alcohol withdrawal before subjecting him to anesthesia for upper endoscopy. If his bleeding should increase then would consider emergent endoscopy with control of bleeding as indicated. Tentatively I am consider an upper endoscopy on Saturday a.m. Status: Acute (2) Alcoholism, chronic: Status: Chronic (3) Seizures: Status: Chronic (4) Altered mental status: Status: Acute Qualifiers: Altered mental status type: unspecified Qualified Code(s): R41.82 - Altered mental status, unspecified Narrative A/P Narrative: Narrative: Time Spent With Patient Time: Total time spent is greater than 50% in coordination of care (as documented) at patient's floor/unit and/or counseling patient:
[2019-12-18] MEDS: 0.9 % SODIUM CHLORIDE 1,000 ML IV SCH (17:40)
[2019-12-18 18:12] LABS: Basophils # (Auto) 0.05 K/mcL (0.00-0.30); Basophils % (Auto) 0.8 % (0.0-2.0); Eosinophils # (Auto) 0.09 K/mcL (0.00-0.70); Eosinophils % (Auto) 1.4 % (0.0-7.0); Granulocytes % (Auto) 71.9 % (38.0-78.0); Hematocrit 35.1 % (40.1-51.0); Hemoglobin 10.6 g/dL (13.7-17.5); Lymphocytes # (Auto) 1.05 K/mcL (1.50-4.80); Lymphocytes % (Auto) 16.5 % (15.5-49.0); Mean Cell Volume 76.1 fL (80.0-100.0); Mean Corpuscular HGB Conc 30.2 g/dL (31.0-36.0); Mean Platelet Volume 10.2 fL (7.4-10.4); Monocytes % (Auto) 9.4 % (1.0-12.0); Platelet Count 112 K/mcL (140-440); RBC 4.61 M/mcL (4.63-6.08); Red Cell Distribution Width 20.5 % (11.5-14.5); WBC 6.4 K/mcL (4.50-11.00)
[2019-12-18] MEDS: SENNOSIDES 1 TABLET PO SCH (20:17)
[2019-12-18] MEDS: ACETAMINOPHEN 325 MG TABLET PO PRN (22:37)
[2019-12-18] MEDS: PANTOPRAZOLE 80 MG in 0.9 % SODIUM CHLORIDE 100 ML IV SCH (23:41)
[2019-12-19] MEDS: OCTREOTIDE ACETATE 500 MCG in 0.9 % SODIUM CHLORIDE 499.5 ML IV SCH ×4 (01:01→22:52)
[2019-12-19] MEDS: 0.9 % SODIUM CHLORIDE 1,000 ML IV SCH ×3 (05:27→19:27)
[2019-12-19] MEDS: LORazepam 2 MG/ML VIAL IV SCH ×4 (06:29→23:46)
[2019-12-19] MEDS: 0.9 % SODIUM CHLORIDE 10 ML SYRINGE IV SCH ×3 (06:30→20:49)
[2019-12-19 06:56] LABS: Basophils # (Auto) 0.08 K/mcL (0.00-0.30); Basophils % (Auto) 1.4 % (0.0-2.0); Eosinophils # (Auto) 0.24 K/mcL (0.00-0.70); Eosinophils % (Auto) 4.1 % (0.0-7.0); Granulocytes % (Auto) 64.9 % (38.0-78.0); Hematocrit 38.1 % (40.1-51.0); Hemoglobin 11.3 g/dL (13.7-17.5); Lymphocytes % (Auto) 22.5 % (15.5-49.0); Mean Cell Volume 76.5 fL (80.0-100.0); Mean Corpuscular HGB Conc 29.7 g/dL (31.0-36.0); Mean Platelet Volume 10.3 fL (7.4-10.4); Monocytes # (Auto) 0.41 K/mcL (0.10-0.90); Monocytes % (Auto) 7.1 % (1.0-12.0); RBC 4.98 M/mcL (4.63-6.08); Red Cell Distribution Width 21.1 % (11.5-14.5); WBC 5.8 K/mcL (4.50-11.00)
[2019-12-19 06:57] LABS: Platelet Count 118 K/mcL (140-440)
[2019-12-19 07:17] LABS: ALT/SGPT 66 U/l (0-40); AST/SGOT 102 U/l (0-37); Alkaline Phosphatase 66 U/L (39-117); Bilirubin,Total 0.9 mg/dL (0.0-1.0); Blood Urea Nitrogen 6 mg/dl (6-20); Calcium 8.5 mg/dl (8.6-10.4); Carbon Dioxide 22 mmol/L (22-30); Chloride 101 mmol/L (96-108); Glomerular Filtration Rate 101; Glucose 129 mg/dL (70-105)
[2019-12-19 07:18] LABS: Albumin/Globulin Ratio 1.3 (1.0-2.3)
[2019-12-19] MEDS: levETIRAcetam 500 MG in 0.9 % SODIUM CHLORIDE 100 ML IV SCH ×2 (10:24→20:29)
[2019-12-19] MEDS: DOCUSATE SODIUM 100 MG CAPSULE PO SCH ×2 (10:24→20:49)
[2019-12-19] MEDS: THIAMINE 100 MG in 0.9 % SODIUM CHLORIDE 50 ML IV SCH (10:25)
[2019-12-19] MEDS: PANTOPRAZOLE 80 MG in 0.9 % SODIUM CHLORIDE 100 ML IV SCH ×2 (10:25→20:29)
[2019-12-19] MEDS: FAMOTIDINE 20 MG TABLET PO SCH ×2 (10:43→20:28)
--- NOTE | 2019-12-19 11:59 | General Surgery Progress Note ---
SUBJECTIVE Subjective Patient information: Note initiated : 12/19/19 at 11:56 am Service Date, if different from initiated Date: [] Patient: Rios Navarro 54 y/o M admitted on 12/17/19 for seizure. Chief Complaint: [] Interval history: Narrative:patient is much more alert and aware today. He answers all questions appropriately. He does not appear to be having any hallucinations. He did not have any melena or emesis of coffee-ground liquid during the evening and night. Hemoglobin 11.3, hematocrit 38.1, potassium 3.7, BUN 16, creatinine 0.8. Constitutional Vitals: Vital Signs Temp Pulse Resp BP Pulse Ox 98.9 F 76 15 144/121 88 L 12/19/19 04:01 12/19/19 04:01 12/19/19 04:01 12/19/19 04:01 12/19/19 04:01 Period Temp Pulse Resp BP Sys/Mcgill Pulse Ox Last 24 Hr 98.9 F-99.7 F 42-114 10-25 129-167/74-121 88-98 Intake and Output 12/18/19 12/19/19 12/19/19 21:59 05:59 13:59 Intake Total 3097 1373 1733 Output Total 553 1202 1002 Balance 2544 171 731 Weight 202 lb 9.6 oz Intake & Output: Intake & Output 12/18/19 12/19/19 12/19/19 21:59 05:59 13:59 Intake Total 3097 1373 1733 Output Total 553 1202 1002 Balance 2544 171 731 Weight 202 lb 9.6 oz Intake: IV 2468 386 2686 Sodium Chloride 0.9% 1,000 ml @ 977 75 mls/hr IV .[id number] [facility] Rx#: [id number] Sodium Chloride 0.9% 250 ml @ 98 20 mls/hr IV .[id number] [facility] Rx#: [id number] Dextrose 5%-Ns IV Solution 1, 965 000 ml @ 100 mls/hr IV .Q10H [facility] Rx#:[id number] Sandostatin 500 Mcg In Sodium 484 500 Chloride 0.9% 499.5 ml @ 50 MCG /HR 50 mls/hr IV Q10H [facility] Rx#: [id number] Protonix 80 mg In Sodium 89 100 Chloride 0.9% 100 ml @ 8 MG/HR 10 mls/hr IV Q10H [facility] Rx#: [id number] Potassium Chloride 40 Meq In 520 Dextrose 5% in Water 500 ml @ 130 mls/hr IV ONCE ONE Rx#: [id number] Vitamin B1 100 mg In Sodium 51 Chloride 0.9% 50 ml @ 50 mls/hr IV DAILY [facility] Rx#:[id number] Keppra 500 mg In Sodium 105 105 Chloride 0.9% 100 ml @ 200 mls/ hr IV Q12H [facility] Rx#:[id number] Oral 1080 800 Blood Product 329 Output: Void Amount 550 1200 1000 # of times incontinent of urine 3 2 2 Other: Meal Dinner Percent of Meal Consumed 100% Feeding Ability Independent Urine Appearance Clear Clear Urine Color Pale Pale Urine Odor Normal Stool Size Moderate Moderate Stool Color Green Brown Stool Consistency Soft Soft Loose # Voids 1 1 # Bowel Movements 1 # of times incontinent of 1 1 Bowels Head Head exam: Present atraumatic, normal inspection and normocephalic ENT ENT exam: Present normal exam, normal external ear exam and normal oropharynx Neck Neck exam: Present normal inspection; Absent lymphadenopathy and tenderness Respiratory Respiratory exam: Present decreased breath sounds; Absent accessory muscle use, respiratory distress and wheezes Cardiovascular Cardiovascular exam: Absent bradycardia, diastolic murmur, JVD and +S4 GI/Abdominal GI/Abdominal exam: Present soft and distended; Absent guarding and tenderness Psychiatric Psychiatric exam: Present anxious; Absent homicidal ideation and suicidal ideation A/P Assessment and plan (1) Upper gastrointestinal hemorrhage due to gastritis: Status: Acute Comment: patient's breathing has stabilized. Hemoglobin is stable. He is counseled for upper endoscopy which will be done tomorrow (2) Alcoholism, chronic: Status: Chronic Comment: elements of delirium tremens also controlled with present medication regimen (3) Seizures: Status: Chronic Comment: no seizure activity since admission (4) Altered mental status: Status: Acute Comment: mental status is much clearer and patient is very much aware Qualifiers: Altered mental status type: unspecified Qualified Code(s): R41.82 - Altered mental status, unspecified Narrative A/P Narrative: Narrative: Time Spent With Patient Time: Total time spent is greater than 50% in coordination of care (as documented) at patient's floor/unit and/or counseling patient:
--- NOTE | 2019-12-19 12:50 | Internal Med Progress Note ---
SUBJECTIVE Subjective Patient information: Note initiated : 12/19/19 at 12:49 pm Service Date, if different from initiated Date: [] Patient: Rios Navarro 54 y/o M admitted on 12/17/19 for seizure. Chief Complaint: 54-year-old gentleman with a history of severe alcohol dependence and alcohol withdrawal seizures and delirium was brought to the ED from group home following 2 episodes of seizures. Patient has been drinking about 15 tall alcohol bottles and beers for the last few months since May and end up in group home for trespassing he has been incarcerated for the last 4 days. He has a bail hearing and noticed 2 episodes of seizure. Patient being homeless and living out of his car for last few months. Patient denied any other health issues other than unsteady gait for the last few months and numbness of the bilateral lower extremities. 11/16 Overnight patient had dark emesis last night and this morning patient had episodes of melena Possibility of upper GI bleed probable alcoholic gastritis He he is hemodynamically stable and his symptoms are better Ordered 2 units of blood transfusion Start him on Protonix drip Octreotide infusion Discussed with Dr. Atkinson and planning to evaluate him and consider EGD accordingly 11/17 No further evidence of any bleed Hemoglobin seems to be stabilized No further transfusion needed Seen by Dr. Atkinson and planning for EGD tomorrow We will keep the Protonix and octreotide for now N.p.o. after midnight ordered Review of system Constitutional-no fever no chills he is feeling better Abdominal-not complaining of any pain no cramping no diarrhea melena and dark emesis Respiratory-no respiratory distress no hypoxia no accessory muscle use Cardiac-no chest pain no palpitations Neuro-no focal neuro deficit continued having tremor and weakness Psychiatry-appears to be anxious, Interval history: Narrative: Constitutional Vitals: Vital Signs Temp Pulse Resp BP Pulse Ox 98.9 F 79 18 125/93 95 12/19/19 04:01 12/19/19 08:01 12/19/19 08:01 12/19/19 08:01 12/19/19 08:01 Period Temp Pulse Resp BP Sys/Mcgill Pulse Ox Last 24 Hr 98.9 F-99.7 F 42-114 10-25 125-167/73-121 88-98 Intake and Output 12/18/19 12/19/19 12/19/19 21:59 05:59 13:59 Intake Total 3097 1373 1733 Output Total 553 1202 1002 Balance 2544 171 731 Weight 202 lb 9.6 oz Intake & Output: Intake & Output 12/18/19 12/19/19 12/19/19 21:59 05:59 13:59 Intake Total 3097 1373 1733 Output Total 553 1202 1002 Balance 2544 171 731 Weight 202 lb 9.6 oz Intake: IV 9579 744 4172 Sodium Chloride 0.9% 1,000 ml @ 977 75 mls/hr IV .[id number] [facility] Rx#: [id number] Sodium Chloride 0.9% 250 ml @ 98 20 mls/hr IV .[id number] [facility] Rx#: [id number] Dextrose 5%-Ns IV Solution 1, 965 000 ml @ 100 mls/hr IV .Q10H [facility] Rx#:[id number] Sandostatin 500 Mcg In Sodium 484 500 Chloride 0.9% 499.5 ml @ 50 MCG /HR 50 mls/hr IV Q10H [facility] Rx#: [id number] Protonix 80 mg In Sodium 89 100 Chloride 0.9% 100 ml @ 8 MG/HR 10 mls/hr IV Q10H [facility] Rx#: [id number] Potassium Chloride 40 Meq In 520 Dextrose 5% in Water 500 ml @ 130 mls/hr IV ONCE ONE Rx#: [id number] Vitamin B1 100 mg In Sodium 51 Chloride 0.9% 50 ml @ 50 mls/hr IV DAILY [facility] Rx#:[id number] Keppra 500 mg In Sodium 105 105 Chloride 0.9% 100 ml @ 200 mls/ hr IV Q12H [facility] Rx#:[id number] Oral 1080 800 Blood Product 329 Output: Void Amount 550 1200 1000 # of times incontinent of urine 3 2 2 Other: Meal Dinner Percent of Meal Consumed 100% Feeding Ability Independent Urine Appearance Clear Clear Urine Color Pale Pale Urine Odor Normal Stool Size Moderate Moderate Stool Color Green Brown Stool Consistency Soft Soft Loose # Voids 1 1 # Bowel Movements 1 # of times incontinent of 1 1 Bowels General appearance: no acute distress Head Head exam: Present atraumatic, normal inspection and normocephalic Eye Eye exam: Present EOMI; Absent periorbital swelling and scleral icterus ENT ENT exam: Present normal exam and normal oropharynx Respiratory Respiratory exam: Present normal respiratory exam; Absent accessory muscle use, respiratory distress and wheezes Cardiovascular Cardiovascular exam: Present normal rate and rhythm; Absent bradycardia and tachycardia GI/Abdominal GI/Abdominal exam: Present normal bowel sounds, soft and distended Neurological Exam Neurological exam: Present abnormal gait, alert, CN II-XII intact and oriented X3; Absent motor sensory deficit Psychiatric Psychiatric exam: Absent agitated, anxious and depressed OBJ DATA Labs CBC & Chem 7: 12/19/19 05:10 12/19/19 05:10 Labs: Abnormal Lab Results 12/19/19 12/19/19 12/18/19 05:10 05:10 17:49 RBC 4.61 L Hgb 11.3 L 10.6 L Hct 38.1 L 35.1 L MCV 76.5 L 76.1 L MCH 22.7 L 23.0 L MCHC 29.7 L 30.2 L RDW 21.1 H 20.5 H Plt Count 118 L 112 L MPV Gran % Lymph % (Auto) Lymph # (Auto) 1.30 L 1.05 L Potassium Chloride Carbon Dioxide Anion Gap Glucose 129 H Calcium 8.5 L Total Bilirubin AST 102 H ALT 66 H Total Protein TSH 12/18/19 12/18/19 12/18/19 12:12 05:50 05:50 RBC 3.75 L 3.52 L Hgb 8.2 L 7.7 L Hct 28.5 L 26.6 L MCV 76.0 L 75.6 L MCH 21.9 L 21.9 L MCHC 28.8 L 28.9 L RDW 21.1 H 20.7 H Plt Count 108 L 102 L MPV 10.5 H Gran % Lymph % (Auto) 13.1 L Lymph # (Auto) 0.71 L 0.86 L Potassium 3.1 L Chloride Carbon Dioxide Anion Gap Glucose 126 H Calcium 8.1 L Total Bilirubin AST 65 H ALT Total Protein 5.8 L TSH 12/17/19 12/17/19 12/17/19 22:40 10:30 10:29 RBC 3.80 L 4.29 L Hgb 8.3 L 9.3 L Hct 28.3 L 32.2 L MCV 74.5 L 75.1 L MCH 21.8 L 21.7 L MCHC 29.3 L 28.9 L RDW 20.7 H 20.2 H Plt Count 115 L 110 L MPV Gran % 80.0 H Lymph % (Auto) 11.4 L 8.9 L Lymph # (Auto) 0.69 L 0.62 L Potassium Chloride 95 L Carbon Dioxide 12 L Anion Gap 29.0 H Glucose 179 H Calcium Total Bilirubin 1.1 H AST 80 H ALT 47 H Total Protein TSH 12/17/19 10:22 RBC Hgb Hct MCV MCH MCHC RDW Plt Count MPV Gran % Lymph % (Auto) Lymph # (Auto) Potassium Chloride Carbon Dioxide Anion Gap Glucose Calcium Total Bilirubin AST ALT Total Protein TSH 5.89 H Meds: Medications Acetaminophen (Tylenol) 650 mg PO Q6HP PRN; Protocol PRN Reason: Per Pain Protocol/Fever > 101 Last Admin: 12/18/19 22:37 Dose: 650 mg Documented by: Albuterol Sulfate (Ventolin) 2.5 mg NEB Q2HP PRN PRN Reason: Shortness Of Breath Docusate Sodium (Colace) 100 mg PO BID [facility] Last Admin: 12/19/19 10:24 Dose: Not Given Documented by: Famotidine (Pepcid) 20 mg PO BID [facility] Last Admin: 12/19/19 10:43 Dose: 20 mg Documented by: Haloperidol Lactate (Haldol) 2 mg IV Q4HP PRN PRN Reason: Agitation Last Admin: 12/18/19 22:37 Dose: 2 mg Documented by: Levetiracetam 500 mg/ Sodium (Chloride) 105 mls @ 200 mls/hr IV Q12H [facility] Last Infusion: 12/19/19 11:26 Dose: Infused Documented by: Octreotide Acetate 500 mcg/ (Sodium Chloride) 500 mls @ 50 mls/hr IV Q10H [facility]; Protocol Last Admin: 12/19/19 12:10 Dose: 50 mcg/hr, 50 mls/hr Documented by: Pantoprazole Sodium 80 mg/ (Sodium Chloride) 100 mls @ 10 mls/hr IV Q10H [facility] Last Admin: 12/19/19 10:25 Dose: 8 mg/hr, 10 mls/hr Documented by: Thiamine HCl 100 mg/ Sodium (Chloride) 51 mls @ 50 mls/hr IV DAILY [facility] Stop: 12/22/19 10:02 Last Infusion: 12/19/19 11:27 Dose: Infused Documented by: Sodium Chloride (Sodium Chloride 0.9%) 1,000 mls @ 75 mls/hr IV .[id number] [facility] Last Admin: 12/19/19 06:42 Dose: 75 mls/hr Documented by: Lorazepam (Ativan) 1 mg IV Q6H [facility] Last Admin: 12/19/19 06:29 Dose: 1 mg Documented by: Lorazepam (Ativan) 0.5 mg IV Q4HP PRN PRN Reason: ANXIETY/SEDATION Last Admin: 12/18/19 19:28 Dose: 0.5 mg Documented by: Ondansetron HCl (Zofran) 4 mg IV Q6HP PRN PRN Reason: Nausea And Vomiting Senna (Senokot) 2 tab PO HS [facility] Last Admin: 12/18/19 20:17 Dose: Not Given Documented by: Sodium Chloride (Saline Flush) 10 ml IV Q8 [facility] Last Admin: 12/19/19 06:30 Dose: 10 ml Documented by: Trazodone HCl (Desyrel) 50 mg PO HSP PRN PRN Reason: Insomnia Vitamin B Complex (Vitamin B Complex) 1 cap PO BID [facility] A/P Assessment and plan (1) Upper gastrointestinal hemorrhage due to gastritis: Status: Acute Comment: patient's breathing has stabilized. Hemoglobin is stable. He is counseled for upper endoscopy which will be done tomorrow (2) Alcoholism, chronic: Status: Chronic Comment: elements of delirium tremens also controlled with present medication regimen (3) Seizures: Status: Chronic Comment: no seizure activity since admission (4) Altered mental status: Status: Acute Comment: mental status is much clearer and patient is very much aware Qualifiers: Altered mental status type: unspecified Qualified Code(s): R41.82 - Altered mental status, unspecified Narrative A/P Narrative: Narrative: Probable upper GI bleed Possible to alcoholic gastritis or Rosana-Quispe tear Patient denied previous history of esophageal varices or any endoscopy in the past His history of long-term alcoholism put him at risk for portal hypertension Started him on Protonix drip, octreotide drip Hemoglobin seems to be stabilized and no evidence of further bleed Monitor hemoglobin every [address] Atkinson and he will evaluate the patient and consider EGD accordingly probable alcohol withdrawal seizure and delirium tremens History of heavy alcohol intake and end up in the group home for [place] Patient had 2 episodes of seizures in group home Patient was presented in the ED by the police and given 2 dose of lorazepam Started him on Keppra 500 twice daily We will start him on CIWA protocol with scheduled lorazepam and as needed 0.5 mg every 2 hour Haldol 2 mg IV every 4 hours as needed for psychotic symptoms and agitation Her symptoms seems to be getting better severe metabolic acidosis Probably starvation acidosis Start him on IV fluid resuscitation We will start him on thiamine Severe alcohol dependence Patient has plans to stay away from alcohol Social service consult Unsteady gait Probable peripheral neuropathy B12 level 500 TSH 5.2 DVT prophylaxis-discontinue Lovenox yesterday due to suspected upper GI CODE STATUS-DNR Time Spent With Patient Time: Total time spent is greater than 50% in coordination of care (as document ed) at patient's floor/unit and/or counseling patient: QUALITY VTE Deep Vein Thrombosis/Pulmonary Embolism Present on Admission: No
[2019-12-19 14:57] LABS: Basophils # (Auto) 0.07 K/mcL (0.00-0.30); Basophils % (Auto) 1.2 % (0.0-2.0); Eosinophils # (Auto) 0.19 K/mcL (0.00-0.70); Eosinophils % (Auto) 3.2 % (0.0-7.0); Hemoglobin 12.2 g/dL (13.7-17.5); Lymphocytes # (Auto) 0.81 K/mcL (1.50-4.80); Lymphocytes % (Auto) 13.7 % (15.5-49.0); Mean Cell Volume 75.9 fL (80.0-100.0); Mean Corpuscular HGB Conc 30.5 g/dL (31.0-36.0); Mean Platelet Volume 9.5 fL (7.4-10.4); Monocytes # (Auto) 0.41 K/mcL (0.10-0.90); Monocytes % (Auto) 6.9 % (1.0-12.0); Platelet Count 94 K/mcL (140-440); RBC 5.27 M/mcL (4.63-6.08); Red Cell Distribution Width 21.5 % (11.5-14.5); WBC 5.9 K/mcL (4.50-11.00)
[2019-12-19] MEDS: ACETAMINOPHEN 325 MG TABLET PO PRN (19:26)
[2019-12-19] MEDS: VITAMIN B COMPLEX 1 CAPSULE PO SCH (20:28)
[2019-12-19] MEDS: SENNOSIDES 1 TABLET PO SCH (20:49)
[2019-12-19 22:34] LABS: Basophils # (Auto) 0.05 K/mcL (0.00-0.30); Basophils % (Auto) 0.8 % (0.0-2.0); Eosinophils # (Auto) 0.21 K/mcL (0.00-0.70); Eosinophils % (Auto) 3.6 % (0.0-7.0); Granulocytes % (Auto) 68.2 % (38.0-78.0); Hematocrit 35.4 % (40.1-51.0); Hemoglobin 10.2 g/dL (13.7-17.5); Lymphocytes # (Auto) 0.97 K/mcL (1.50-4.80); Lymphocytes % (Auto) 16.5 % (15.5-49.0); Mean Cell Volume 81.9 fL (80.0-100.0); Mean Corpuscular HGB Conc 28.8 g/dL (31.0-36.0); Mean Platelet Volume 10.4 fL (7.4-10.4); Monocytes # (Auto) 0.64 K/mcL (0.10-0.90); Monocytes % (Auto) 10.9 % (1.0-12.0); Platelet Count 115 K/mcL (140-440); RBC 4.32 M/mcL (4.63-6.08); Red Cell Distribution Width 21.8 % (11.5-14.5); WBC 5.9 K/mcL (4.50-11.00)
[2019-12-20] MEDS: 0.9 % SODIUM CHLORIDE 1,000 ML IV SCH ×4 (01:22→17:58)
[2019-12-20] MEDS: LORazepam 2 MG/ML VIAL IV SCH ×4 (05:53→23:46)
[2019-12-20] MEDS: 0.9 % SODIUM CHLORIDE 10 ML SYRINGE IV SCH ×3 (05:54→22:16)
[2019-12-20] MEDS: PANTOPRAZOLE 80 MG in 0.9 % SODIUM CHLORIDE 100 ML IV SCH (05:54)
[2019-12-20 07:09] LABS: ALT/SGPT 50 U/l (0-40); AST/SGOT 59 U/l (0-37); Albumin 3.5 gm/dL (3.2-5.2); Albumin/Globulin Ratio 1.4 (1.0-2.3); Alkaline Phosphatase 70 U/L (39-117); Bilirubin,Total 0.9 mg/dL (0.0-1.0); Blood Urea Nitrogen 7 mg/dl (6-20); Calcium 8.2 mg/dl (8.6-10.4); Carbon Dioxide 23 mmol/L (22-30); Chloride 100 mmol/L (96-108); Globulin 2.5 gm/dL (2.2-3.7); Glomerular Filtration Rate 101; Glucose 119 mg/dL (70-105)
[2019-12-20 07:44] LABS: Basophils # (Auto) 0.07 K/mcL (0.00-0.30); Basophils % (Auto) 1.5 % (0.0-2.0); Eosinophils # (Auto) 0.22 K/mcL (0.00-0.70); Eosinophils % (Auto) 4.6 % (0.0-7.0); Hematocrit 36.1 % (40.1-51.0); Hemoglobin 10.7 g/dL (13.7-17.5); Lymphocytes # (Auto) 0.94 K/mcL (1.50-4.80); Lymphocytes % (Auto) 19.8 % (15.5-49.0); Mean Cell Volume 80.2 fL (80.0-100.0); Mean Corpuscular HGB Conc 29.6 g/dL (31.0-36.0); Mean Platelet Volume 10.1 fL (7.4-10.4); Monocytes # (Auto) 0.48 K/mcL (0.10-0.90); Monocytes % (Auto) 10.1 % (1.0-12.0); Platelet Count 112 K/mcL (140-440); WBC 4.7 K/mcL (4.50-11.00)
[2019-12-20] MEDS: LORazepam 2 MG/ML VIAL IV PRN (08:23)
[2019-12-20] MEDS: levETIRAcetam 500 MG in 0.9 % SODIUM CHLORIDE 100 ML IV SCH (08:56)
[2019-12-20] MEDS: OCTREOTIDE ACETATE 500 MCG in 0.9 % SODIUM CHLORIDE 499.5 ML IV SCH (08:56)
[2019-12-20] MEDS ORDERED: MIDAZOLAM 5 MG/5 ML VIAL IV ONE (10:08)
[2019-12-20] MEDS ORDERED: GLYCOPYRROLATE 0.2 MG/ML VIAL IV ONE (10:08)
[2019-12-20] MEDS ORDERED: PROPOFOL 200 MG/20 ML VIAL IV ONE (10:08)
[2019-12-20] MEDS ORDERED: LIDOCAINE HCL/PF 100 MG/5 ML SYRINGE IV ONE (10:08)
[2019-12-20] MEDS ORDERED: KETAMINE 100 MG/ML ML IV ONE (10:08)
--- NOTE | 2019-12-20 10:39 | Brief Operative Note ---
Brief Operative Note Date of procedure: 12/20/19 Pre-op diagnosis: UPPER GASTROINTESTINAL BLEEDING Post-op diagnosis: other (GASTROPARESIS WITH 2 LARGE GASTRIC BEZOARS;DISTAL ESOPHAGEAL ULCERS(LINEAR);GE JUNCTION ULCERS; DIFFUSE ALCOHOLIC GASTROPATHY WITH EROSIONS ; NO ACTIVE BLEEDING) Procedure: ESOPHAGOGASTRODUODENOSCOPY Grafts/Implants: No Anesthesia: none Complications: none Surgeon: Sofya Atkinson Specimens Removed/Pathology: none sent Condition: stable Disposition: PACU
[2019-12-20] MEDS ORDERED: ALBUTEROL SULFATE 2.5 MG/3 ML NEBULIZER NEB PRN (11:22)
[2019-12-20] MEDS ORDERED: ACETAMINOPHEN 325 MG TABLET PO PRN (11:22)
[2019-12-20] MEDS ORDERED: traZODone HCL 50 MG TABLET PO PRN (11:22)
[2019-12-20] MEDS ORDERED: LORazepam 2 MG/ML VIAL IV PRN (11:22)
[2019-12-20] MEDS ORDERED: HALOPERIDOL LACTATE 5 MG/ML VIAL IV PRN (11:22)
[2019-12-20] MEDS ORDERED: ONDANSETRON 4 MG/2 ML VIAL IV PRN (11:22)
[2019-12-20] MEDS: THIAMINE 100 MG in 0.9 % SODIUM CHLORIDE 50 ML IV SCH (11:52)
[2019-12-20] MEDS: DOCUSATE SODIUM 100 MG CAPSULE PO SCH ×2 (11:53→22:15)
[2019-12-20] MEDS: FAMOTIDINE 20 MG TABLET PO SCH (11:54)
[2019-12-20] MEDS: VITAMIN B COMPLEX 1 CAPSULE PO SCH ×2 (11:55→20:33)
[2019-12-20] MEDS ORDERED: PANTOPRAZOLE 80 MG in 0.9 % SODIUM CHLORIDE 100 ML IV SCH (16:00)
[2019-12-20] MEDS ORDERED: OCTREOTIDE ACETATE 500 MCG in 0.9 % SODIUM CHLORIDE 499.5 ML IV SCH (17:00)
[2019-12-20] MEDS ORDERED: levETIRAcetam 500 MG in 0.9 % SODIUM CHLORIDE 100 ML IV SCH (21:00)
[2019-12-20] MEDS ORDERED: SENNOSIDES 1 TABLET PO SCH (21:00)
[2019-12-20] MEDS ORDERED: FAMOTIDINE 20 MG TABLET PO SCH (21:00)
--- NOTE | 2019-12-20 22:46 | Internal Med Progress Note ---
SUBJECTIVE Subjective Patient information: Note initiated : 12/20/19 at 10:44 pm Service Date, if different from initiated Date: [] Patient: Rios Navarro 54 y/o M admitted on 12/17/19 for seizure. Chief Complaint: [] Interval history: Narrative: 54-year-old gentleman with a history of severe alcohol dependence and alcohol withdrawal seizures and delirium was brought to the ED from detention following 2 episodes of seizures. Patient has been drinking about 15 tall alcohol bottles and beers for the last few months since May and end up in detention for trespassing he has been incarcerated for the last 4 days. He has a bail hearing and noticed 2 episodes of seizure. Patient being homeless and living out of his car for last few months. Patient denied any other health issues other than unsteady gait for the last few months and numbness of the bilateral lower extremities. 11/16 Overnight patient had dark emesis last night and this morning patient had episodes of melena Possibility of upper GI bleed probable alcoholic gastritis He he is hemodynamically stable and his symptoms are better Ordered 2 units of blood transfusion Start him on Protonix drip Octreotide infusion Discussed with Dr. Atkinson and planning to evaluate him and consider EGD accordingly 11/17 No further evidence of any bleed Hemoglobin seems to be stabilized No further transfusion needed Seen by Dr. Atkinson and planning for EGD tomorrow We will keep the Protonix and octreotide for now N.p.o. after midnight ordered 11/18 Patient underwent EGD which showed 2 gastroesophageal ulcers no active bleeding Extensive alcoholic gastropathy Probable source of bleeding No active bleeding found We will discontinue the octreotide Discontinue pantoprazole drip and started him on pantoprazole IV 40 twice daily Discontinue Keppra IV and changed to p.o. Review of system Constitutional-no fever no chills he is feeling better Abdominal-not complaining of any pain no cramping no diarrhea melena and dark emesis Respiratory-no respiratory distress no hypoxia no accessory muscle use Cardiac-no chest pain no palpitations Neuro-no focal neuro deficit continued having tremor and weakness Psychiatry-appears to be anxious, Constitutional Vitals: Vital Signs Temp Pulse Resp BP Pulse Ox 98.8 F 87 18 129/90 96 12/20/19 18:44 12/20/19 18:53 12/20/19 11:13 12/20/19 18:44 12/20/19 18:53 Period Temp Pulse Resp BP Sys/Mcgill Pulse Ox Last 24 Hr 97.9 F-99.6 F 42-97 16-18 119-160/65-91 14-100 Intake and Output 12/20/19 12/20/19 12/21/19 13:59 21:59 05:59 Intake Total 2394 1958 Output Total 1201 626 200 Balance 1193 1332 -200 Weight 200 lb 12.8 oz Patient Weight 12/21/19 05:59 Weight 200 lb 12.8 oz Intake & Output: Intake & Output 12/20/19 12/20/19 12/21/19 13:59 21:59 05:59 Intake Total 2394 1958 Output Total 1201 626 200 Balance 1193 1332 -200 Weight 200 lb 12.8 oz Intake: IV 1394 398 Sodium Chloride 0.9% 1,000 ml @ 673 398 75 mls/hr IV .[id number] [facility] Rx#: [id number] Sandostatin 500 Mcg In Sodium 571 Chloride 0.9% 499.5 ml @ 50 MCG /HR 50 mls/hr IV Q10H [facility] Rx#: [id number] Protonix 80 mg In Sodium 45 0 Chloride 0.9% 100 ml @ 8 MG/HR 10 mls/hr IV Q10H [facility] Rx#: [id number] Keppra 500 mg In Sodium 105 Chloride 0.9% 100 ml @ 200 mls/ hr IV Q12H [facility] Rx#:[id number] Oral 1560 IV - Manual Only 1000 Output: Urine Catheter Amount 1200 Void Amount 625 200 # of times incontinent of urine 1 1 Other: Meal Dinner Percent of Meal Consumed 100% Feeding Ability Independent Urine Appearance Clear Clear Urine Color Pale Bright Yellow Stool Size Large Large Stool Color Sb Colored Yellow Green Pale Stool Consistency Soft # Voids 1 # Bowel Movements 1 # of times incontinent of 1 Bowels General appearance: no acute distress Head Head exam: Present atraumatic and normal inspection ENT ENT exam: Present mucous membranes moist, normal exam and normal oropharynx Neck Neck exam: Present normal inspection; Absent lymphadenopathy and tenderness Respiratory Respiratory exam: Present normal respiratory exam and CTAB; Absent accessory muscle use, respiratory distress, stridor and wheezes Cardiovascular Cardiovascular exam: Present normal rate and rhythm; Absent JVD, +S3, +S4 and systolic murmur GI/Abdominal GI/Abdominal exam: Present normal bowel sounds and distended; Absent guarding, pulsatile mass and tenderness Neurological Exam Neurological exam: Present alert, oriented X3 and reflexes normal; Absent motor sensory deficit OBJ DATA Labs CBC & Chem 7: 12/20/19 05:15 12/20/19 05:15 Labs: Abnormal Lab Results 12/20/19 12/20/19 12/19/19 05:15 05:15 22:00 RBC 4.50 L 4.32 L Hgb 10.7 L 10.2 L Hct 36.1 L 35.4 L MCV MCH 23.8 L 23.6 L MCHC 29.6 L 28.8 L RDW 22.0 H 21.8 H Plt Count 112 L 115 L MPV Lymph % (Auto) Lymph # (Auto) 0.94 L 0.97 L Potassium Glucose 119 H Calcium 8.2 L AST 59 H ALT 50 H Total Protein 12/19/19 12/19/19 12/19/19 14:10 05:10 05:10 RBC Hgb 12.2 L 11.3 L Hct 40.0 L 38.1 L MCV 75.9 L 76.5 L MCH 23.1 L 22.7 L MCHC 30.5 L 29.7 L RDW 21.5 H 21.1 H Plt Count 94 L 118 L MPV Lymph % (Auto) 13.7 L Lymph # (Auto) 0.81 L 1.30 L Potassium Glucose 129 H Calcium 8.5 L AST 102 H ALT 66 H Total Protein 12/18/19 12/18/19 12/18/19 17:49 12:12 05:50 RBC 4.61 L 3.75 L 3.52 L Hgb 10.6 L 8.2 L 7.7 L Hct 35.1 L 28.5 L 26.6 L MCV 76.1 L 76.0 L 75.6 L MCH 23.0 L 21.9 L 21.9 L MCHC 30.2 L 28.8 L 28.9 L RDW 20.5 H 21.1 H 20.7 H Plt Count 112 L 108 L 102 L MPV 10.5 H Lymph % (Auto) 13.1 L Lymph # (Auto) 1.05 L 0.71 L 0.86 L Potassium Glucose Calcium AST ALT Total Protein 12/18/19 12/17/19 05:50 22:40 RBC 3.80 L Hgb 8.3 L Hct 28.3 L MCV 74.5 L MCH 21.8 L MCHC 29.3 L RDW 20.7 H Plt Count 115 L MPV Lymph % (Auto) 11.4 L Lymph # (Auto) 0.69 L Potassium 3.1 L Glucose 126 H Calcium 8.1 L AST 65 H ALT Total Protein 5.8 L Meds: Medications Acetaminophen (Tylenol) 650 mg PO Q6HP PRN; Protocol PRN Reason: Per Pain Protocol/Fever > 101 Albuterol Sulfate (Ventolin) 2.5 mg NEB Q2HP PRN PRN Reason: Shortness Of Breath Docusate Sodium (Colace) 100 mg PO BID [facility] Last Admin: 12/20/19 22:15 Dose: Not Given Documented by: Haloperidol Lactate (Haldol) 2 mg IV Q4HP PRN PRN Reason: Agitation Sodium Chloride (Sodium Chloride 0.9%) 1,000 mls @ 75 mls/hr IV .[id number] [facility] Last Admin: 12/20/19 17:58 Dose: 75 mls/hr Documented by: Thiamine HCl 100 mg/ Sodium (Chloride) 51 mls @ 50 mls/hr IV DAILY [facility] Stop: 12/22/19 10:02 Levetiracetam (Keppra) 500 mg PO BID [facility] Lorazepam (Ativan) 1 mg IV Q6H [facility] Last Admin: 12/20/19 18:19 Dose: 1 mg Documented by: Lorazepam (Ativan) 0.5 mg IV Q4HP PRN PRN Reason: ANXIETY/SEDATION Ondansetron HCl (Zofran) 4 mg IV Q6HP PRN PRN Reason: Nausea And Vomiting Pantoprazole Sodium (Protonix) 40 mg IV BIDAC [facility] Senna (Senokot) 2 tab PO HS [facility] Last Admin: 12/20/19 22:15 Dose: Not Given Documented by: Sodium Chloride (Saline Flush) 10 ml IV Q8 [facility] Last Admin: 12/20/19 22:16 Dose: Not Given Documented by: Trazodone HCl (Desyrel) 50 mg PO HSP PRN PRN Reason: Insomnia Vitamin B Complex (Vitamin B Complex) 1 cap PO BID [facility] Last Admin: 12/20/19 20:33 Dose: 1 cap Documented by: A/P Assessment and plan (1) Upper gastrointestinal hemorrhage due to gastritis: Status: Acute Comment: patient's breathing has stabilized. Hemoglobin is stable. He is counseled for upper endoscopy which will be done tomorrow (2) Alcoholism, chronic: Status: Chronic Comment: elements of delirium tremens also controlled with present medication regimen (3) Seizures: Status: Chronic Comment: no seizure activity since admission (4) Altered mental status: Status: Acute Comment: mental status is much clearer and patient is very much aware Qualifiers: Altered mental status type: unspecified Qualified Code(s): R41.82 - Altered mental status, unspecified Narrative A/P Narrative: Narrative: upper GI bleed-probably due to gastroesophageal junction ulcers, extensive alcoholic gastropathy Underwent EGD which showed evidence of esophageal and gastroesophageal junction ulcers without evidence of active bleeding, extensive alcoholic gastropathy with erosions Stopped octreotide and Protonix drip Started him on Protonix 40 IV twice daily Hemoglobin seems to be stabilized and no evidence of further bleed probable alcohol withdrawal seizure and delirium tremens History of heavy alcohol intake and end up in the detention for [place] Patient had 2 episodes of seizures in detention Patient was presented in the ED by the police and given 2 dose of lorazepam Keppra changed to 500 twice daily p.o. We will discontinue the CIWA protocol if his symptoms are controlled by tomorrow Haldol 2 mg IV every 4 hours as needed for psychotic symptoms and agitation Her symptoms seems to be getting better severe metabolic acidosis Probably starvation acidosis Start him on IV fluid resuscitation We will start him on thiamine Severe alcohol dependence Patient has plans to stay away from alcohol Social service consult Unsteady gait Probable peripheral neuropathy B12 level 500 TSH 5.2 DVT prophylaxis-discontinue Lovenox yesterday due to suspected upper GI CODE STATUS-DNR Time Spent With Patient Time: Total time spent is greater than 50% in coordination of care (as documented) at patient's floor/unit and/or counseling patient: QUALITY VTE Deep Vein Thrombosis/Pulmonary Embolism Present on Admission: No
[2019-12-21] MEDS: 0.9 % SODIUM CHLORIDE 1,000 ML IV SCH (01:24)
[2019-12-21] MEDS: 0.9 % SODIUM CHLORIDE 10 ML SYRINGE IV SCH ×3 (05:56→20:42)
[2019-12-21] MEDS: LORazepam 2 MG/ML VIAL IV SCH ×2 (05:56→12:56)
[2019-12-21 06:14] LABS: ALT/SGPT 65 U/l (0-40); AST/SGOT 81 U/l (0-37); Albumin 3.3 gm/dL (3.2-5.2); Albumin/Globulin Ratio 1.2 (1.0-2.3); Alkaline Phosphatase 71 U/L (39-117); Bilirubin,Total 0.7 mg/dL (0.0-1.0); Blood Urea Nitrogen 7 mg/dl (6-20); Calcium 8.5 mg/dl (8.6-10.4); Carbon Dioxide 23 mmol/L (22-30); Chloride 102 mmol/L (96-108); Globulin 2.8 gm/dL (2.2-3.7); Glomerular Filtration Rate 101; Glucose 147 mg/dL (70-105)
[2019-12-21] MEDS ORDERED: PANTOPRAZOLE 40 MG VIAL IV SCH (07:30)
[2019-12-21] MEDS: DOCUSATE SODIUM 100 MG CAPSULE PO SCH ×2 (08:03→20:42)
[2019-12-21] MEDS ORDERED: THIAMINE 100 MG in 0.9 % SODIUM CHLORIDE 50 ML IV SCH (09:00)
[2019-12-21] MEDS ORDERED: levETIRAcetam 500 MG TABLET PO SCH (09:00)
[2019-12-21] MEDS: VITAMIN B COMPLEX 1 CAPSULE PO SCH ×2 (09:35→20:43)
[2019-12-21] MEDS ORDERED: MAGNESIUM SULFATE 2 GM/50 ML BAG IV ONE (10:25)
[2019-12-21] MEDS ORDERED: POTASSIUM CHLORIDE 20 MEQ TABLET PO ONE (11:17)
[2019-12-21] MEDS ORDERED: LORazepam 2 MG/ML VIAL IV PRN (16:49)
[2019-12-21] MEDS ORDERED: traZODone HCL 50 MG TABLET PO PRN (16:49)
[2019-12-21] MEDS ORDERED: ACETAMINOPHEN 325 MG TABLET PO PRN (16:49)
[2019-12-21] MEDS ORDERED: ALBUTEROL SULFATE 2.5 MG/3 ML NEBULIZER NEB PRN (16:49)
[2019-12-21] MEDS ORDERED: HALOPERIDOL LACTATE 5 MG/ML VIAL IV PRN (16:49)
[2019-12-21] MEDS ORDERED: ONDANSETRON 4 MG/2 ML VIAL IV PRN (16:49)
[2019-12-21] MEDS: PANTOPRAZOLE 40 MG VIAL IV SCH (17:11)
[2019-12-21] MEDS: LORazepam 1 MG TABLET PO SCH ×2 (17:49→23:34)
[2019-12-21] MEDS ORDERED: LORazepam 1 MG TABLET PO SCH (18:00)
--- NOTE | 2019-12-21 18:21 | General Surgery Progress Note ---
SUBJECTIVE Subjective Patient information: Note initiated : 12/21/19 at 6:18 pm Service Date, if different from initiated Date: [] Patient: Rios Navarro 54 y/o M admitted on 12/17/19 for seizure. Chief Complaint: [] Interval history: Narrative:patient is progressing well.he has tolerated diet without difficulty. Hemoglobin is stable without significant reduction. There is slight decrease in platelets at 112,000. Constitutional Vitals: Vital Signs Temp Pulse Resp BP Pulse Ox 99.6 F H 102 H 20 133/87 94 12/21/19 16:00 12/21/19 12:06 12/21/19 16:00 12/21/19 16:00 12/21/19 16:00 Period Temp Pulse Resp BP Sys/Mcgill Pulse Ox Last 24 Hr 97.7 F-99.6 F 50-102 16-22 128-149/77-93 90-100 Intake and Output 12/21/19 12/21/19 12/21/19 05:59 13:59 21:59 Intake Total 1250 2530 990 Output Total 1800 207 Balance -550 455 990 Intake & Output: Intake & Output 12/21/19 12/21/19 12/21/19 05:59 13:59 21:59 Intake Total 1250 2530 990 Output Total 1800 207 Balance -550 455 990 Intake: IV 1730 Sodium Chloride 0.9% 1,000 ml @ 1000 75 mls/hr IV .[id number] [facility] Rx#: [id number] Sandostatin 500 Mcg In Sodium 474 Chloride 0.9% 499.5 ml @ 50 MCG /HR 50 mls/hr IV Q10H [facility] Rx#: [id number] Protonix 80 mg In Sodium 100 Chloride 0.9% 100 ml @ 8 MG/HR 10 mls/hr IV Q10H [facility] Rx#: [id number] Vitamin B1 100 mg In Sodium 51 Chloride 0.9% 50 ml @ 50 mls/hr IV DAILY [facility] Rx#:[id number] Keppra 500 mg In Sodium 105 Chloride 0.9% 100 ml @ 200 mls/ hr IV Q12H [facility] Rx#:[id number] Oral 1250 800 990 Output: Urine Catheter Amount 200 Void Amount 1600 2075 Other: Meal Dinner Percent of Meal Consumed 100% Feeding Ability Independent Urine Appearance Clear Urine Color Bright Yellow Light Melyssa Stool Size Moderate Stool Color Brown Green Stool Consistency Soft Formed Neck Neck exam: Present normal inspection; Absent lymphadenopathy and tenderness Respiratory Respiratory exam: Present decreased breath sounds; Absent accessory muscle use, respiratory distress and wheezes Cardiovascular Cardiovascular exam: Absent bradycardia, diastolic murmur, JVD and +S4 GI/Abdominal GI/Abdominal exam: Present soft and distended; Absent guarding and tenderness A/P Assessment and plan (1) Upper gastrointestinal hemorrhage due to gastritis: Status: Acute Comment: patient is stable and there is no evidence of ongoing bleeding. We will sign off at this time and will be available for reconsult if needed (2) Alcoholism, chronic: Status: Chronic Comment: elements of delirium tremens also controlled with present medication regimen (3) Seizures: Status: Chronic Comment: no seizure activity since admission (4) Altered mental status: Status: Acute Comment: mental status is much clearer and patient is very much aware Qualifiers: Altered mental status type: unspecified Qualified Code(s): R41.82 - Altered mental status, unspecified Narrative A/P Narrative: Narrative: Time Spent With Patient Time: Total time spent is greater than 50% in coordination of care (as documented) at patient's floor/unit and/or counseling patient:
[2019-12-21] MEDS: levETIRAcetam 500 MG TABLET PO SCH (20:42)
[2019-12-21] MEDS ORDERED: SENNOSIDES 1 TABLET PO SCH (21:00)
--- NOTE | 2019-12-21 22:06 | Internal Med Progress Note ---
SUBJECTIVE Subjective Patient information: Note initiated : 12/21/19 at 10:04 pm Service Date, if different from initiated Date: [] Patient: Rios Navarro 54 y/o M admitted on 12/17/19 for seizure. Chief Complaint: [] 54-year-old gentleman with a history of severe alcohol dependence and alcohol withdrawal seizures and delirium was brought to the ED from nursing home following 2 episodes of seizures. Patient has been drinking about 15 tall alcohol bottles and beers for the last few months since May and end up in nursing home for trespassing he has been incarcerated for the last 4 days. He has a bail hearing and noticed 2 episodes of seizure. Patient being homeless and living out of his car for last few months. Patient denied any other health issues other than unsteady gait for the last few months and numbness of the bilateral lower extremities. 11/16 Overnight patient had dark emesis last night and this morning patient had episodes of melena Possibility of upper GI bleed probable alcoholic gastritis He he is hemodynamically stable and his symptoms are better Ordered 2 units of blood transfusion Start him on Protonix drip Octreotide infusion Discussed with Dr. Atkinson and planning to evaluate him and consider EGD accordingly 12/18 No further evidence of any bleed Hemoglobin seems to be stabilized No further transfusion needed Seen by Dr. Atkinson and planning for EGD tomorrow We will keep the Protonix and octreotide for now N.p.o. after midnight ordered 12/19 Patient underwent EGD which showed 2 gastroesophageal ulcers no active bleeding Extensive alcoholic gastropathy Probable source of bleeding No active bleeding found We will discontinue the octreotide Discontinue pantoprazole drip and started him on pantoprazole IV 40 twice daily Discontinue Keppra IV and changed to p.o. 12/20 Patient hemoglobin remained stable Renal function electrolytes were unremarkable except hypomagnesemia and ordered replacement Patient continues to be very weak and requiring walker and assistance Discussed with the physical therapy case management and patient would benefit from ongoing therapy Discussed with the patient about the CT finding of 3.4 cm arachnoid cyst, no change from previous CT scan 4 months ago which probably no need any urgent intervention but if he continued having symptoms recommend follow-up with primary care provider Review of system Constitutional-no fever no chills he is feeling better Abdominal-not complaining of any pain no cramping no diarrhea melena and dark emesis Respiratory-no respiratory distress no hypoxia no accessory muscle use Cardiac-no chest pain no palpitations Neuro-continue to complaining of unsteady gait Psychiatry-appears to be anxious, Interval history: Narrative: Constitutional Vitals: Vital Signs Temp Pulse Resp BP Pulse Ox 99.9 F H 77 20 142/91 94 12/21/19 19:08 12/21/19 19:08 12/21/19 19:08 12/21/19 19:08 12/21/19 19:26 Period Temp Pulse Resp BP Sys/Mcgill Pulse Ox Last 24 Hr 97.7 F-99.9 F 50-102 16-22 128-149/77-93 90-98 Intake and Output 12/21/19 12/21/19 12/22/19 13:59 21:59 05:59 Intake Total 2530 1790 Output Total 2075 1375 Balance 455 415 Weight 202 lb 2 oz Patient Weight 12/22/19 05:59 Weight 202 lb 2 oz Intake & Output: Intake & Output 12/21/19 12/21/19 12/22/19 13:59 21:59 05:59 Intake Total 2530 1790 Output Total 2075 1375 Balance 455 415 Weight 202 lb 2 oz Intake: IV 1730 Sodium Chloride 0.9% 1,000 ml @ 1000 75 mls/hr IV .[id number] [facility] Rx#: [id number] Sandostatin 500 Mcg In Sodium 474 Chloride 0.9% 499.5 ml @ 50 MCG /HR 50 mls/hr IV Q10H [facility] Rx#: [id number] Protonix 80 mg In Sodium 100 Chloride 0.9% 100 ml @ 8 MG/HR 10 mls/hr IV Q10H [facility] Rx#: [id number] Vitamin B1 100 mg In Sodium 51 Chloride 0.9% 50 ml @ 50 mls/hr IV DAILY [facility] Rx#:[id number] Keppra 500 mg In Sodium 105 Chloride 0.9% 100 ml @ 200 mls/ hr IV Q12H [facility] Rx#:[id number] Oral 800 1790 Output: Void Amount 2075 1375 Other: Meal Dinner Percent of Meal Consumed 100% Feeding Ability Independent Urine Appearance Clear Urine Color Light Melyssa Bright Yellow Urine Odor Normal Stool Size Moderate Stool Color Brown Green Stool Consistency Soft Formed General appearance: mild distress and obese Head Head exam: Present atraumatic, normal inspection and normocephalic ENT ENT exam: Present mucous membranes moist, normal exam and normal external ear exam Respiratory Respiratory exam: Absent accessory muscle use, respiratory distress and wheezes Cardiovascular Cardiovascular exam: Absent JVD, +S4 and systolic murmur GI/Abdominal GI/Abdominal exam: Present normal bowel sounds, soft and distended Neurological Exam Neurological exam: Present alert, oriented X3 and reflexes normal; Absent motor sensory deficit Psychiatric Psychiatric exam: Present anxious; Absent agitated and depressed OBJ DATA Labs CBC & Chem 7: 12/20/19 05:15 12/21/19 05:03 Labs: Abnormal Lab Results 12/21/19 12/20/19 12/20/19 05:03 05:15 05:15 RBC 4.50 L Hgb 10.7 L Hct 36.1 L MCV MCH 23.8 L MCHC 29.6 L RDW 22.0 H Plt Count 112 L Lymph % (Auto) Lymph # (Auto) 0.94 L Glucose 147 H 119 H Calcium 8.5 L 8.2 L Magnesium 1.5 L AST 81 H 59 H ALT 65 H 50 H 12/19/19 12/19/19 12/19/19 22:00 14:10 05:10 RBC 4.32 L Hgb 10.2 L 12.2 L 11.3 L Hct 35.4 L 40.0 L 38.1 L MCV 75.9 L 76.5 L MCH 23.6 L 23.1 L 22.7 L MCHC 28.8 L 30.5 L 29.7 L RDW 21.8 H 21.5 H 21.1 H Plt Count 115 L 94 L 118 L Lymph % (Auto) 13.7 L Lymph # (Auto) 0.97 L 0.81 L 1.30 L Glucose Calcium Magnesium AST ALT 12/19/19 05:10 RBC Hgb Hct MCV MCH MCHC RDW Plt Count Lymph % (Auto) Lymph # (Auto) Glucose 129 H Calcium 8.5 L Magnesium AST 102 H ALT 66 H Meds: Medications Acetaminophen (Tylenol) 650 mg PO Q6HP PRN; Protocol PRN Reason: Per Pain Protocol/Fever > 101 Albuterol Sulfate (Ventolin) 2.5 mg NEB Q2HP PRN PRN Reason: Shortness Of Breath Docusate Sodium (Colace) 100 mg PO BID SHAN[facility] Last Admin: 12/21/19 20:42 Dose: Not Given Documented by: Haloperidol Lactate (Haldol) 2 mg IV Q4HP PRN PRN Reason: Agitation Thiamine HCl 100 mg/ Sodium (Chloride) 51 mls @ 50 mls/hr IV DAILY [facility] Stop: 12/22/19 10:02 Levetiracetam (Keppra) 500 mg PO BID [facility] Last Admin: 12/21/19 20:42 Dose: 500 mg Documented by: Lorazepam (Ativan) 1 mg PO Q6H [facility] Last Admin: 12/21/19 17:49 Dose: 1 mg Documented by: Lorazepam (Ativan) 0.5 mg IV Q4HP PRN PRN Reason: ANXIETY/SEDATION Ondansetron HCl (Zofran) 4 mg IV Q6HP PRN PRN Reason: Nausea And Vomiting Pantoprazole Sodium (Protonix) 40 mg IV BIDAC [facility] Last Admin: 12/21/19 17:11 Dose: 40 mg Documented by: Senna (Senokot) 2 tab PO HS [facility] Last Admin: 12/21/19 20:42 Dose: Not Given Documented by: Sodium Chloride (Saline Flush) 10 ml IV Q8 [facility] Last Admin: 12/21/19 20:42 Dose: 10 ml Documented by: Trazodone HCl (Desyrel) 50 mg PO HSP PRN PRN Reason: Insomnia Vitamin B Complex (Vitamin B Complex) 1 cap PO BID [facility] Last Admin: 12/21/19 20:43 Dose: 1 cap Documented by: A/P Assessment and plan (1) Upper gastrointestinal hemorrhage due to gastritis: Status: Acute Comment: patient is stable and there is no evidence of ongoing bleeding. We will sign off at this time and will be available for reconsult if needed (2) Alcoholism, chronic: Status: Chronic Comment: elements of delirium tremens also controlled with present medication regimen (3) Seizures: Status: Chronic Comment: no seizure activity since admission (4) Altered mental status: Status: Acute Comment: mental status is much clearer and patient is very much aware Qualifiers: Altered mental status type: unspecified Qualified Code(s): R41.82 - Altered mental status, unspecified Narrative A/P Narrative: Narrative: upper GI bleed-probably due to gastroesophageal junction ulcers, extensive alcoholic gastropathy Underwent EGD which showed evidence of esophageal and gastroesophageal junction ulcers without evidence of active bleeding, extensive alcoholic gastropathy with erosions Stopped octreotide and Protonix drip Started him on Protonix 40 IV twice daily Hemoglobin seems to be stabilized and no evidence of further bleed probable alcohol withdrawal seizure and delirium tremens History of heavy alcohol intake and end up in the nursing home for [facility] Patient had 2 episodes of seizures in nursing home Patient was presented in the ED by the police and given 2 dose of lorazepam Keppra changed to 500 twice daily p.o. We will discontinue the CIWA protocol if his symptoms are controlled by tomorrow Haldol 2 mg IV every 4 hours as needed for psychotic symptoms and agitation Her symptoms seems to be getting better severe metabolic acidosis Probably starvation acidosis Start him on IV fluid resuscitation Continue thiamine and multivitamins Unsteady gait Probably due to early Wernicke's syndrome Started him on thiamine high-dose and on continued 100 daily next B12 level 500 TSH 5.2 If he continued having symptoms recommend outpatient MRI with the primary care provider CT scan of the head was unremarkable for any acute findings Severe alcohol dependence Patient has plans to stay away from alcohol Social service consult and looking for placement DVT prophylaxis-discontinue Lovenox yesterday due to suspected upper GI CODE STATUS-DNR Time Spent With Patient Time: Total time spent is greater than 50% in coordination of care (as documented) at patient's floor/unit and/or counseling patient: QUALITY VTE Deep Vein Thrombosis/Pulmonary Embolism Present on Admission: No
[2019-12-22] MEDS: LORazepam 1 MG TABLET PO SCH (05:34)
[2019-12-22] MEDS: 0.9 % SODIUM CHLORIDE 10 ML SYRINGE IV SCH (05:35)
[2019-12-22 06:38] LABS: Basophils # (Auto) 0.05 K/mcL (0.00-0.30); Basophils % (Auto) 1.3 % (0.0-2.0); Eosinophils # (Auto) 0.21 K/mcL (0.00-0.70); Eosinophils % (Auto) 5.5 % (0.0-7.0); Granulocytes % (Auto) 43.6 % (38.0-78.0); Hematocrit 37.6 % (40.1-51.0); Hemoglobin 11.1 g/dL (13.7-17.5); Lymphocytes # (Auto) 1.09 K/mcL (1.50-4.80); Lymphocytes % (Auto) 28.5 % (15.5-49.0); Mean Cell Volume 79.5 fL (80.0-100.0); Mean Corpuscular HGB Conc 29.5 g/dL (31.0-36.0); Monocytes # (Auto) 0.81 K/mcL (0.10-0.90); Monocytes % (Auto) 21.1 % (1.0-12.0); RBC 4.73 M/mcL (4.63-6.08); Red Cell Distribution Width 22.8 % (11.5-14.5); WBC 3.8 K/mcL (4.50-11.00)
[2019-12-22 06:49] LABS: Platelet Count 130 K/mcL (140-440)
[2019-12-22 06:51] LABS: ALT/SGPT 60 U/l (0-40); AST/SGOT 51 U/l (0-37); Albumin 3.5 gm/dL (3.2-5.2); Albumin/Globulin Ratio 1.3 (1.0-2.3); Alkaline Phosphatase 96 U/L (39-117); Bilirubin,Total 0.5 mg/dL (0.0-1.0); Blood Urea Nitrogen 9 mg/dl (6-20); Calcium 8.7 mg/dl (8.6-10.4); Carbon Dioxide 24 mmol/L (22-30); Chloride 103 mmol/L (96-108); Globulin 2.6 gm/dL (2.2-3.7); Glomerular Filtration Rate 101; Glucose 116 mg/dL (70-105)
[2019-12-22] MEDS: PANTOPRAZOLE 40 MG VIAL IV SCH (07:07)
--- NOTE | 2019-12-22 07:31 | Discharge Summary ---
Discharge Provider Provider Patient information: Note initiated : 12/22/19 at 7:29 am Service Date, if different from initiated Date: [] Patient: Rios Navarro 54 y/o M admitted on 12/17/19 for seizure. Chief Complaint: [] Date of admission: 12/17/19 16:10 Discharge date: 12/22/19 Primary care physician: PCP No Consults: 12/17/19 15:32 Consult to Physician [CONS] Stat Comment: Consulting Provider: Elinor Longo Reason For Exam: Physician to Consult 12/18/19 13:24 Consult to Physician [CONS] Routine Comment: ?UGI bleed Consulting Provider: Sofya Atkinson Reason For Exam: Physician to Consult Discharge Meds Discharge Medications Active and Home Medications: Home Medications levetiracetam [Keppra] 250 mg PO BID #30 tab NS 12/22/19 [Rx Last Taken Unknown] pantoprazole 40 mg PO BID 30 Days #60 tab NS 12/22/19 [Rx Last Taken Unknown] thiamine HCl (vitamin B1) 500 mg PO QDAY #60 tab NS 12/22/19 [Rx Last Taken Unknown] trazodone 50 mg PO QHS PRN #30 tab NS 12/22/19 [Rx Last Taken Unknown] COURSE Hospital Course Hospital Course: 54-year-old gentleman with a history of severe alcohol dependence and alcohol withdrawal seizures and delirium was brought to the ED from retirement following 2 episodes of seizures. Patient has been drinking about 15 tall alcohol bottles and beers for the last few months since May and end up in retirement for trespassing he has been incarcerated for the last 4 days. He has a bail hearing and noticed 2 episodes of seizure. Patient being homeless and living out of his car for last few months. Patient denied any other health issues other than unsteady gait for the last few months and numbness of the bilateral lower extremities. 11/16 Overnight patient had dark emesis last night and this morning patient had episodes of melena Possibility of upper GI bleed probable alcoholic gastritis He he is hemodynamically stable and his symptoms are better Ordered 2 units of blood transfusion Start him on Protonix drip Octreotide infusion Discussed with Dr. Atkinson and planning to evaluate him and consider EGD accordingly 12/18 No further evidence of any bleed Hemoglobin seems to be stabilized No further transfusion needed Seen by Dr. Atkinson and planning for EGD tomorrow We will keep the Protonix and octreotide for now N.p.o. after midnight ordered 12/19 Patient underwent EGD which showed 2 gastroesophageal ulcers no active bleeding Extensive alcoholic gastropathy Probable source of bleeding No active bleeding found We will discontinue the octreotide Discontinue pantoprazole drip and started him on pantoprazole IV 40 twice daily Discontinue Keppra IV and changed to p.o. 12/20 Patient hemoglobin remained stable Renal function electrolytes were unremarkable except hypomagnesemia and ordered replacement Patient continues to be very weak and requiring walker and assistance Discussed with the physical therapy case management and patient would benefit from ongoing therapy Discussed with the patient about the CT finding of 3.4 cm arachnoid cyst, no change from previous CT scan 4 months ago which probably no need any urgent intervention but if he continued having symptoms recommend follow-up with primary care provider Review of system Constitutional-no fever no chills he is feeling better Abdominal-not complaining of any pain no cramping no diarrhea melena and dark emesis Respiratory-no respiratory distress no hypoxia no accessory muscle use Cardiac-no chest pain no palpitations Neuro-continue to complaining of unsteady gait Psychiatry-appears to be anxious, upper GI bleed-probably due to gastroesophageal junction ulcers, extensive alcoholic gastropathy Underwent EGD which showed evidence of esophageal and gastroesophageal junction ulcers without evidence of active bleeding, extensive alcoholic gastropathy with erosions Stopped octreotide and Protonix drip Started him on Protonix 40 IV twice daily Hemoglobin seems to be stabilized and no evidence of further bleed probable alcohol withdrawal seizure and delirium tremens History of heavy alcohol intake and end [facility] in the [facility] Patient had 2 episodes of seizures in retirement Patient was presented in the ED by the police and given 2 dose of lorazepam Keppra changed to 500 twice daily p.o. We will discontinue the CIWA protocol if his symptoms are controlled by tomorrow Haldol 2 mg IV every 4 hours as needed for psychotic symptoms and agitation Her symptoms resolved Prescribed him Keppra 250 twice daily severe metabolic acidosis-resolved Probably starvation acidosis Start him on IV fluid resuscitation Continue thiamine and multivitamins Unsteady gait-Probably due to early Wernicke's syndrome Started him on thiamine high-dose and on continued 100 daily next B12 level 500 TSH 5.2 Physical therapy involved in case management looking for placement but most of the facilities denied Discussed with the patient and he will be discharged Prescribed thiamine 500 daily If he continued having symptoms recommend outpatient MRI with the primary care provider CT scan of the head was unremarkable for any acute findings Severe alcohol dependence Patient has plans to stay away from alcohol Patient do not wish to have any rehab treatment for now Discharge diagnosis: Upper GI bleed, alcohol withdrawal seizures, thiamine deficiency Time Spent with Patient Time attestation: Total time spent providing and/or coordinating discharge services: EXAM Constitutional Vitals: Temp Pulse Resp BP Pulse Ox 98 F 73 20 123/83 98 12/22/19 07:22 12/22/19 04:00 12/22/19 07:22 12/22/19 07:22 12/22/19 07:22 General appearance: cooperative and no acute distress Head Head exam: Present atraumatic and normal inspection Eye Eye exam: Present EOMI; Absent periorbital swelling and scleral icterus ENT ENT exam: Present normal exam, normal external ear exam and normal oropharynx Neck Neck exam: Present normal inspection; Absent lymphadenopathy and tenderness Respiratory Respiratory exam: Present CTAB; Absent accessory muscle use, respiratory distress and wheezes Cardiovascular Cardiovascular exam: Absent bradycardia, JVD, +S4 and tachycardia GI/Abdominal GI/Abdominal exam: Present normal bowel sounds, soft and distended Neurological Exam Neurological exam: Present alert, CN II-XII intact, oriented X3 and reflexes normal; Absent motor sensory deficit Psychiatric Psychiatric exam: Present anxious; Absent agitated and depressed Discharge Data Data Completed and Pending Labs on day of discharge: Labs from last 24 hours 12/22/19 12/22/19 04:22 04:22 WBC 3.8 L RBC 4.73 Hgb 11.1 L Hct 37.6 L MCV 79.5 L MCH 23.5 L MCHC 29.5 L RDW 22.8 H Plt Count 130 L MPV 10.0 Gran % 43.6 Lymph % (Auto) 28.5 [place] % (Auto) 21.1 H Eos % (Auto) 5.5 Baso % (Auto) 1.3 Gran # 1.67 L Lymph # (Auto) 1.09 L [place] # (Auto) 0.81 Eos # (Auto) 0.21 Baso # (Auto) 0.05 Sodium 138 Potassium 3.4 Chloride 103 Carbon Dioxide 24 Anion Gap 11.0 BUN 9 Creatinine 0.8 GFR Calculation 101 Glucose 116 H Calcium 8.7 Magnesium 2.2 Total Bilirubin 0.5 AST 51 H ALT 60 H Alkaline Phosphatase 96 Total Protein 6.1 Albumin 3.5 Globulin 2.6 Albumin/Globulin Ratio 1.3 Discharge Plan Patient/Caregiver Discharge Instructions Activity: ambulate only with your walker Diet: Regular Diet Instructions: Abuse of Alcohol (GEN), Recurrent Seizures in Adults (GEN), Metabolic Acidosis (GEN), Upper Endoscopy (GEN) Activity Restrictions/Additional Instructions: This discharge packet is provided to you to help keep you informed about your care. We want to ensure you get everything you need when you go home. You will also be receiving a call from us in a few days to follow up with you and see how you are doing since your discharge. This gives us a chance to listen to any concerns you maybe experiencing since you were discharged or any additional needs you may have, as well as providing us feedback on your care experience. We strive to always provide excellent care and thank you for your feedback and for choosing [facility]. Prescriptions: New trazodone 50 mg tablet 50 mg PO QHS PRN (Reason: insomnia) Qty: 30 RF: 1 pantoprazole 40 mg tablet,delayed release (DR/EC) 40 mg PO BID 30 Days Qty: 60 RF: 2 levetiracetam [Keppra] 250 mg tablet 250 mg PO BID Qty: 30 RF: 2 thiamine HCl (vitamin B1) 500 mg tablet 500 mg PO QDAY Qty: 60 RF: 4 Follow Up Plan Follow up with: Luiza Chandler DO [Physician] - 12/29/19 9:30 am (Please arrive at 9:15 am If you are unable to make this appointment, please call to [email or web address] [phone].) No,PCP [Primary Care Provider] - Patient Disposition: Xfer SNF Care Plan Goals: pending SNF placement if they don't accept pt can be discharged Rehab Potential: Fair I certify that the patient requires SNF services: Yes Overall status at discharge: patient is progressing back to baseline Discharge Orders: Discharge Order (Routine); Ordered 12/22/19 Ordered By: Elinor Longo Discharge Comment: if SNF not accepting him can be discharged QUALITY VTE Deep Vein Thrombosis/Pulmonary Embolism Present on Admission: No
[2019-12-22] MEDS ORDERED: THIAMINE 100 MG in 0.9 % SODIUM CHLORIDE 50 ML IV SCH (09:00)
[2019-12-22] MEDS: VITAMIN B COMPLEX 1 CAPSULE PO SCH (09:14)
[2019-12-22] MEDS: levETIRAcetam 500 MG TABLET PO SCH (09:14)
[2019-12-22] MEDS: DOCUSATE SODIUM 100 MG CAPSULE PO SCH (09:14)
--- NOTE | 2019-12-30 08:56 | Operative Note ---
DATE OF OPERATION: 12/20/2019 PREOPERATIVE DIAGNOSIS: Upper GI bleeding. POSTOPERATIVE DIAGNOSIS: Gastroparesis with two large gastric bezoars, distal linear esophageal ulcerations above the GE junction extending to the GE junction. Neither of these were healing. PROCEDURE: Esophagogastroduodenoscopy. SURGEON: Sofya Atkinson M.D. DESCRIPTION OF PROCEDURE: ____ There was a small ulcer crater at the GE junction which was not actively bleeding. The patient had diffuse gastropathy throughout the stomach with some superficial erosions, but no active bleeding. Some of the bezoar was pushed into the duodenum in order to gain access. There was no blood in the duodenum. However, I could not get to the third portion because of the bezoar. Scope was pulled back. Retroflex view was done. The most noticeable feature was a lack of peristalsis of the stomach with the two large bezoars made primarily of food which filled the dependent portion of the stomach. The aforementioned gastropathy was noted. Air was suctioned from the stomach and the scope was removed. The patient tolerated the procedure well. He was transferred to the postanesthetic care unit in day surgery for monitoring. LCS:hossein Job ID: [id number] Doc ID: [id number] Sofya Atkinson M.D.
== END 2019-12-22 10:35 | disposition home or self-care (01) | DRG 100 ==
LOC: ED 09:51 → MEDSUR 16:10 → ICU 12-18 14:32
PROVIDERS: ADMIT Internal Medicine; ATTEND Internal Medicine